=== PATIENT | male | born 1945 | race African-American/Black ===

== ENCOUNTER 2018-04-02 09:52 | Emergency (ER) | payer OTHER ==
--- OUTSIDE RECORDS SUMMARY | 2018-04-02 09:53 | XMS REPORT ---
:1945 Author Organization eClinicalWorks Care Team Providers Name Role Phone Hamilton, Na Provider Role Unavailable Allergies, Adverse Reactions, Alerts Substance Reaction Event Type penicillin Info Not Available Drug Allergy Nathan Inhibitor anaphylaxis Drug Allergy Sulfa Info Not Available Drug Allergy Problems Problem Type Condition Code Onset Dates Condition Status Problem Osteoarthritis M19.90 Active Problem Alcohol abuse F10.10 Active Problem Screening for prostate cancer Z12.5 Active Problem Elevated blood pressure reading in I10 Active office with diagnosis of hypertension Assessment Elevated serum globulin level R77.1 Active Problem Persistent lymphocytosis D72.820 Active Assessment Renal insufficiency N28.9 Active Assessment Screening for malignant neoplasm of Z12.11 Active colon Problem Screening for malignant neoplasm of Z12.11 Active colon Problem Renal insufficiency N28.9 Active Problem Bradycardia R00.1 Active Problem Anemia D64.9 Active Problem Sexual dysfunction R37 Active Assessment Mixed hyperlipidemia E78.2 Active Assessment Elevated blood pressure reading in I10 Active office with diagnosis of hypertension Assessment Persistent lymphocytosis D72.820 Active Assessment Microcytic anemia D50.9 Active Problem Mixed hyperlipidemia E78.2 Active Problem Neutropenia, unspecified D70.9 Active Problem Microcytic anemia D50.9 Active Problem Idiopathic peripheral neuropathy G60.9 Active Problem Chronic back pain M54.9 Active Medications Medication Code Code Instructions Start End Status Dosage System Date Date Viagra [facility] 04384373419 100 MG Orally Active 1 tablet Once a day as needed Aspir-81 [facility] 71388929693 81 MG Orally Active 1 tablet Once a day Cozaar [facility] 57772069616 50 MG Inactive TAKE 1 TABLET EVERY DAY Lisinopril ND 59773644436 10 MG Orally Inactive 1 tablet Once a day Nasacort [facility] 18395007482 55 MCG/ACT Active 1 puff in Allergy 24HR Nasally Once a each day nostril Ferrous Sulfate [facility] 78841282739 325 (65 Fe) MG Active 1 tablet Orally Once a day Cialis [facility] 58478415157 20 MG Orally Inactive 1 tablet Lipitor [facility] 08377673753 10 MG Orally Active 1 tablet Once a day HydrALAZINE HCl [facility] 78757227010 25 MG Orally Active 1 tablet two times a day with food Norvasc [facility] 27598329693 10 MG Orally Active 1 tablet Once a day Results No Known Results Summary Purpose eClinicalWorks Submission
--- OUTSIDE RECORDS SUMMARY | 2018-04-02 09:53 | XMS REPORT ---
:1945 Author Organization eClinicalWorks Care Team Providers Name Role Phone Hamilton, Na Provider Role Unavailable Allergies, Adverse Reactions, Alerts Substance Reaction Event Type penicillin Info Not Available Drug Allergy Nathan Inhibitor anaphylaxis Drug Allergy Sulfa Info Not Available Drug Allergy Problems Problem Type Condition Code Onset Dates Condition Status Problem Chronic back pain M54.9 Active Problem Screening for prostate cancer Z12.5 Active Problem Osteoarthritis M19.90 Active Problem Anemia D64.9 Active Problem Sexual dysfunction R37 Active Problem Hypertension I10 Active Problem Bradycardia R00.1 Active Problem Alcohol abuse F10.10 Active Problem Lymphocytosis D72.820 Active Problem Renal insufficiency N28.9 Active Assessment Screening for malignant neoplasm of Z12.11 Active colon Assessment Microcytic anemia D50.9 Active Problem Idiopathic peripheral neuropathy G60.9 Active Problem Mixed hyperlipidemia E78.2 Active Assessment Mixed hyperlipidemia E78.2 Active Problem Neutropenia, unspecified D70.9 Active Assessment Hypertension I10 Active Problem Microcytic anemia D50.9 Active Medications Medication Code Code Instructions Start End Status Dosage System Date Date [facility] 88656041925 81 MG Orally Active 1 tablet Once a day Nasacort [facility] 61870064737 55 MCG/ACT Active 1 puff in Allergy 24HR Nasally Once a each day nostril Viagra [facility] 89253353183 100 MG Orally Active 1 tablet Once a day as needed Lisinopril [facility] 37947515140 10 MG Orally Active 1 tablet Once a day HydrALAZINE HCl [facility] 93080750635 25 MG Orally two September Active 1 tablet times a day 2017 with food Ferrous Sulfate [facility] 56337384106 325 (65 Fe) MG September Active 1 tablet Orally Once a 2017 day Cialis [facility] 63910283622 20 MG Orally Active 1 tablet Norvasc [facility] 57959240329 10 MG Orally Active 1 tablet Once a day Cozaar [facility] 52628125814 50 MG Orally Active 1 tablet Once a day Lipitor [facility] 82836656415 10 MG Orally Active 1 tablet Once a day Results No Known Results Summary Purpose eClinicalWorks Submission
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
--- NOTE | 2018-04-02 10:56 | ER ---
Nurse's Notes [facility] Name: Holger Herrera Jr Age: 72 yrs Sex: Male : 1945 Arrival Date: 04/02/2018 Time: 09:54 Bed 20 Private MD: Diagnosis: Sprain of ligaments of lumbar spine Presentation: 04/02 09:57 Presenting complaint: Patient states: low back pain x 2 days, s/p fall 2 days ago. sv Denies urinary symptoms. Transition of care: patient was not received from another setting of care. Onset of symptoms was March 31, 2018. Risk Assessment: Do you want to hurt yourself or someone else? Patient reports no desire to harm self or others. Initial Sepsis Screen: Does the patient meet any 2 criteria? No. Patient's initial sepsis screen is negative. Does the patient have a suspected source of infection? No. Patient's initial sepsis screen is negative. Care prior to arrival: None. 09:57 Method Of Arrival: Ambulatory sv 09:57 Acuity: TIMOTHY 4 sv Triage Assessment: 09:57 General: Appears in no apparent distress. uncomfortable, Behavior is calm, cooperative. sv Pain: Complains of pain in low back area Pain currently is 10 out of 10 on a pain scale. Pain began 2-3 days ago. Is continuous, Aggravated by increased activity. Neuro: Level of Consciousness is awake, alert, obeys commands, Oriented to person, place, time, situation, Moves all extremities. Full function Gait is steady, with his cane. Respiratory: Respiratory effort is even, unlabored, Respiratory pattern is regular, symmetrical. : Denies burning with urination, urinary frequency, urgency. Musculoskeletal: Circulation, motion, and sensation intact. Range of motion: intact in all extremities. Historical: - Allergies: 09:58 PENICILLINS; sv - PMHx: 09:58 High Cholesterol; Hypertension; sv - PSHx: 09:58 None; sv - Immunization history:: Flu vaccine is not up to date. - Social history:: Smoking status: Patient/guardian denies using tobacco. - Ebola Screening: : No symptoms or risks identified at this time. Screenin:10 Abuse screen: Denies threats or abuse. Denies injuries from another. Nutritional aj screening: No deficits noted. Tuberculosis screening: No symptoms or risk factors identified. Fall Risk Fall in past 12 months (25 points). No secondary diagnosis (0 pts). No IV (0 pts). Ambulatory Aid- Crutches/Cane/Walker (15 pts). Gait- Normal/Bed Rest/Wheelchair (0 pts) Mental Status- Oriented to own ability (0 pts). Assessment: 10:10 General: Appears in no apparent distress. comfortable, Behavior is calm, cooperative, aj appropriate for age. Pain: Complains of pain in low back area. Neuro: Level of Consciousness is awake, alert, obeys commands, Oriented to person, place, time, situation, Appropriate for age. Respiratory: Airway is patent Respiratory effort is even, unlabored, Respiratory pattern is regular, symmetrical. Derm: Skin is intact, is healthy with good turgor, Skin is pink, warm \T\ dry. normal. Musculoskeletal: Reports pain in low back area. 11:40 Neuro: Level of Consciousness is awake, alert, obeys commands, Oriented to person, aa5 place, time, situation. Respiratory: Airway is patent Respiratory effort is even, unlabored, Respiratory pattern is regular, symmetrical. Derm: Skin is dry, Skin is normal, Skin temperature is warm. Vital Signs: 09:59 BP 189 / 90; Pulse 58; Resp 16; Temp 97.3; Pulse Ox 97% ; Weight 95.25 kg; Height 6 ft. sv 0 in. (182.88 cm); Pain 10/10; 09:59 Body Mass Index 28.48 (95.25 kg, 182.88 cm) sv ED Course: 09:54 Patient arrived in ED. mr 09:58 Triage completed. sv 09:59 Arm band placed on. sv 10:01 Junior Persaud PA is PHCP. jm 10:01 Darrel Melvin MD is Attending Physician. jmm 10:10 Dipti Sadler, RN is Primary Nurse. aj 10:10 Patient has correct armband on for positive identification. aj 10:38 Lumbar Spine (3 Views) XRAY In Process Unspecified. EDMS 11:40 No provider procedures requiring assistance completed. aa5 11:40 Patient did not have IV access during this emergency room visit. aa5 Administered Medications: 11:20 Drug: Motrin 600 mg Route: PO; aa5 Outcome: 10:55 Discharge ordered by . jmm 11:40 Discharged to home ambulatory. aa5 11:40 Condition: stable 11:40 Discharge instructions given to patient, Instructed on discharge instructions, follow up and referral plans. medication usage, Demonstrated understanding of instructions, follow-up care, medications, Prescriptions given X 1. 11:42 Patient left the ED. aa5 Signatures: Dispatcher [employer] EDCarmen Espinoza RN RN sv Myers, Amanda, RN RN aj Mickail, Joel, PA PA jmm Rivera, Mary mr Calderon, Audri RN RN aa5 Corrections: (The following items were deleted from the chart) 10:48 09:57 Presenting complaint: Patient states: low back pain x 2 days. Denies urinary sv symptoms. sv
--- NOTE | 2018-04-02 10:56 | EDPHYS ---
Physician Documentation [facility] Name: Holger Herrera Jr Age: 72 yrs Sex: Male : 1945 Arrival Date: 04/02/2018 Time: 09:54 Bed 20 Private MD: ED Physician Darrel Melvin HPI: 04/02 10:16 This 72 yrs old Black Male presents to ER via Ambulatory with complaints of Back Pain. jmm 10:16 The patient presents with pain that is acute. The symptoms are located in the low back. jmm Onset: The symptoms/episode began/occurred acutely, 2 day(s) ago. The pain does not radiate. Associated signs and symptoms: Pertinent negatives: dysuria, fever, incontinence, numbness, tingling, urinary retention. This is a 72 year old male with a history of HLP, HTN that presents to the ED with lower back pain which developed after falling from a standing position and landing on his buttocks. Patient complains of pain mainly to the right side of the back. Denies radiation, urinary retention, denies fecal incontinence. . Historical: - Allergies: 09:58 PENICILLINS; sv - PMHx: 09:58 High Cholesterol; Hypertension; sv - PSHx: 09:58 None; sv - Immunization history:: Flu vaccine is not up to date. - Social history:: Smoking status: Patient/guardian denies using tobacco. - Ebola Screening: : No symptoms or risks identified at this time. ROS: 10:16 Constitutional: Negative for fever, chills, and weight loss, Cardiovascular: Negative jmm for chest pain, palpitations, and edema, Respiratory: Negative for shortness of breath, cough, wheezing, and pleuritic chest pain, Abdomen/GI: Negative for abdominal pain, nausea, vomiting, diarrhea, and constipation. 10:16 MS/Extremity: Negative for injury and deformity, Neuro: Negative for headache, weakness, numbness, tingling, and seizure. 10:16 Back: Positive for pain at rest. 10:16 All other systems are negative. Exam: 10:16 Head/Face: atraumatic. Eyes: EOMI, no conjunctival erythema appreciated ENT: Moist jmm Mucus Membranes Neck: Trachea midline, Supple Chest/axilla: Normal chest wall appearance and motion. Cardiovascular: Regular rate and rhythm. No edema appreciated Respiratory: Normal respirations, no respiratory distress appreciated Abdomen/GI: Non distended, soft 10:16 Constitutional: The patient appears in no acute distress, alert, awake. 10:16 Back: vertebral tenderness, is not appreciated, right lumbar paraspinal tenderness. 10:16 Neuro: Orientation: is normal, Mentation: is normal, Memory: is normal, Gait: is steady. 10:16 Psych: Behavior/mood is pleasant, cooperative. Vital Signs: 09:59 BP 189 / 90; Pulse 58; Resp 16; Temp 97.3; Pulse Ox 97% ; Weight 95.25 kg; Height 6 ft. sv 0 in. (182.88 cm); Pain 10; 09:59 Body Mass Index 28.48 (95.25 kg, 182.88 cm) sv MDM: 10:06 Patient medically screened. [facility] 10:55 Data reviewed: vital signs, nurses notes. Counseling: I had a detailed discussion with rosie the patient and/or guardian regarding: the historical points, exam findings, and any diagnostic results supporting the discharge/admit diagnosis, radiology results, the need for outpatient follow up, to return to the emergency department if symptoms worsen or persist or if there are any questions or concerns that arise at home. 11:29 ED course: Lumbar xray showed no acute findings. Patient is able to ambulate. I do not [facility] currently suspect cord compression. . 04/02 10:08 Order name: Lumbar Spine (3 Views) XRAY; Complete Time: 10:52 [facility] Administered Medications: 11:20 Drug: Motrin 600 mg Route: PO; aa5 Disposition: 10:55 Chart complete. Chart complete. [facility] Disposition: 04/02/18 10:55 Discharged to Home. Impression: Sprain of ligaments of lumbar spine. - Condition is Stable. - Discharge Instructions: Back Pain, Adult. - Prescriptions for orphenadrine citrate 100 mg Oral Tablet Sustained Release - take 1 tablet by ORAL route 2 times per day As needed; 20 tablet. - Medication Reconciliation Form, Thank You Letter, Antibiotic Education, Prescription Opioid Use form. - Follow up: Private Physician; When: 2 - 3 days; Reason: Recheck today's complaints, Continuance of care, Re-evaluation by your physician. Addendum: 04/10/2018 11:31 Co-signature as Attending Physician, Darrel Melvin MD. g s Signatures: Dispatcher [employer] Carmen Cristina RN RN Junior Persaud PA PA jmm Calderon, Audri RN RN aa5 Darrel Melvin MD MD gs Corrections: (The following items were deleted from the chart) 04/02 11:42 10:55 04/02/2018 10:55 Discharged to Home. Impression: Sprain of ligaments of lumbar aa5 spine. Condition is Stable. Forms are Medication Reconciliation Form, Thank You Letter, Antibiotic Education, Prescription Opioid Use. Follow up: Private Physician; When: 2 - 3 days; Reason: Recheck today's complaints, Continuance of care, Re-evaluation by your physician. rosie
[2018-04-02] MEDS ORDERED: IBUPROFEN 400 MG TAB ONE (11:18)
[2018-04-02] MEDS ORDERED: IBUPROFEN 200 MG TAB PO ONE (11:18)
[2018-04-02 11:45] VITALS: BP 189/90; TEMP 97.3; O2SAT 97
== END 2018-04-02 11:42 | disposition home or self-care (01) ==
LOC: ER 09:52
DX: S33.5XXA Sprain of ligaments of lumbar spine, initial encounter (principal); W19.XXXA Unspecified fall, initial encounter; Y93.9 Activity, unspecified; Y92.9 Unspecified place or not applicable; Z88.0 Allergy status to penicillin
CPT/HCPCS: 72100; 99283

== ENCOUNTER 2019-05-31 09:17 | Emergency (ER) | payer OTHER ==
--- OUTSIDE RECORDS SUMMARY | 2019-05-31 09:20 | XMS REPORT ---
:1945 Author Organization eClinicalWorks Care Team Providers Name Role Phone Hamilton, Sophia Provider Role Unavailable Allergies No Known Allergies Problems Problem Type Condition Code Onset Dates Condition Status Assessment Influenza vaccination declined Z28.21 Active Assessment Eczema, unspecified type L30.9 Active Assessment Renal insufficiency N28.9 Active Problem Renal insufficiency N28.9 Active Assessment Elevated serum globulin level R77.1 Active Problem Sexual dysfunction R37 Active Assessment Persistent lymphocytosis D72.820 Active Problem Anemia D64.9 Active Problem Mixed hyperlipidemia E78.2 Active Problem Idiopathic peripheral neuropathy G60.9 Active Problem Eczema, unspecified type L30.9 Active Problem Age-related cataract of both eyes, H25.9 Active unspecified age-related cataract type Assessment Elevated blood pressure reading in I10 Active office with diagnosis of hypertension Assessment Mixed hyperlipidemia E78.2 Active Problem Encounter for general adult medical Z00.01 Active examination with abnormal findings Assessment Microcytic anemia D50.9 Active Problem Screening for malignant neoplasm of Z12.11 Active colon Problem Elevated blood pressure reading in I10 Active office with diagnosis of hypertension Problem Elevated serum globulin level R77.1 Active Problem Persistent lymphocytosis D72.820 Active Problem Microcytic anemia D50.9 Active Problem Chronic back pain M54.9 Active Problem Neutropenia, unspecified D70.9 Active Problem Alcohol abuse F10.10 Active Problem Bradycardia R00.1 Active Problem Osteoarthritis M19.90 Active Problem Screening for prostate cancer Z12.5 Active Medications Medication Code Code Instructions Start End Status Dosage System Date Date Viagra [facility] 42186285008 100 MG Orally Active 1 tablet as Once a day needed Metoprolol Succinate [facility] 43967230852 25 MG Orally Sept Active 1 tablet ER Once a day [facility] 84[facility] 10 MG Orally Active 1 tablet Once a day Tizanidine HCl [facility] 71844118415 2 MG Active 1 TAB EVERY 12 HOURS PRN PAIN MUSCLE SPASM HydrALAZINE HCl [facility] 63640917887 25 MG Orally Active 1 tablet Three times a with food day Hydrochlorothiazide [facility] 53404138639 25 MG Orally Sept Active 1 tablet in Once a day , the morning 2018 Triamcinolone [facility] 51250010566 0.1 % Active 1 Acetonide Externally application Twice a day to affected area Ferrous Sulfate [facility] 37987723861 325 (65 Fe) Active 1 tablet MG Orally Once a day Ferrous Sulfate [facility] 89205771657 325 (65 Fe) Inactive 1 tablet MG Orally Once a day Aspir-81 [facility] 88559173306 81 MG Orally Active 1 tablet Once a day Nasacort Allergy 24HR [facility] 82168476728 55 MCG/ACT Active 1 puff in Nasally Once each nostril a day Norvasc [facility] 00537895893 10 MG Orally Active 1 tablet Once a day Lipitor [facility] 29846382402 10 MG Orally Active 1 tablet Once a day Results No Known Results Summary Purpose eClinicalWorks Submission
[2019-05-31 09:59] LABS: Absolute Lymphocytes (CBC) 2.5 K/uL (0.7-4.9); Basophils % 0.2 % (0-1.3); Hematocrit 39.8 % (39.6-49.0); Lymphocytes % 45.3 % (15.3-44.8); MPV 8.9 fL (7.6-11.3); RBC Red Blood Cell Count 5.56 M/uL (4.33-5.43)
[2019-05-31 10:19] LABS: BUN Blood Urea Nitrogen 13 mg/dL (7-18); Bicarbonate 29 mmol/L (21-32); Glucose Level 93 mg/dL (74-106); Sodium Level 146 mmol/L (136-145); Troponin (Emerg Dept Use Only) < 0.02 ng/mL (0.0-0.045)
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
--- NOTE | 2019-05-31 10:44 | RAD REPORT ---
EXAM DESCRIPTION: RAD - Lumbar Spine 3 Views - 05/31/2019 10:25 am CLINICAL HISTORY: PAIN Radiculopathy COMPARISON: Lumbar Spine 3 Views dated 04/02/2018 FINDINGS: Vertebral body heights appear maintained. No compression fracture noted. Multilevel disc t hinning is present throughout the lumbar spine with small posterior osteophytes, most severe at L5-S1 . No spondylolysis or spondylolisthesis. Aortic atherosclerosis. IMPRESSION: Lumbar degenerative changes are present, greatest at L5-S1. No acute finding demonstrated.
--- NOTE | 2019-05-31 10:50 | RAD REPORT ---
EXAM DESCRIPTION: RAD - Sacrum And Coccyx - 05/31/2019 10:24 am CLINICAL HISTORY: PAIN Trauma, pain COMPARISON: Lumbar Spine 3 Views dated 05/31/2019; Lumbar Spine 3 Views dated 04/02/2018 FINDINGS: No acute fracture seen. Moderate lower lumbar degenerative changes.
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
--- NOTE | 2019-05-31 11:48 | ER ---
Nurse's Notes [facility] Name: Holger Herrera Jr Age: 73 yrs Sex: Male : 1945 Arrival Date: 05/31/2019 Time: 09:19 Bed 4 Private MD: Diagnosis: Radiculopathy, lumbosacral region;Chest pain, unspecified Presentation: 05/31 09:22 Presenting complaint: Patient states: fell onto his butt on and since then iw he's had pain to left low back radiating to left leg and also has been having chest pain since then, pain occurs mostly at night. Transition of care: patient was not received from another setting of care. Onset of symptoms was May 03, 2019. Risk Assessment: Do you want to hurt yourself or someone else? Patient reports no desire to harm self or others. Initial Sepsis Screen: Does the patient meet any 2 criteria? No. Patient's initial sepsis screen is negative. Does the patient have a suspected source of infection? No. Patient's initial sepsis screen is negative. Care prior to arrival: None. 09:22 Method Of Arrival: Ambulatory iw 09:22 Acuity: TIMOTHY 3 iw Historical: - Allergies: 09:24 PENICILLINS; iw - Home Meds: 09:24 Norvasc Oral [Active]; atorvastatin oral oral [Active]; Hydralazine Oral [Active]; iw - PMHx: 09:24 High Cholesterol; Hypertension; iw - PSHx: 09:24 None; iw - Immunization history:: Adult Immunizations not up to date. - Social history:: Smoking status: Patient/guardian denies using tobacco. - Ebola Screening: : Patient negative for fever greater than or equal to 101.5 degrees Fahrenheit, and additional compatible Ebola Virus Disease symptoms Patient denies exposure to infectious person Patient denies travel to an Ebola-affected area in the 21 days before illness onset No symptoms or risks identified at this time. - Family history:: not pertinent. - Hospitalizations: : No recent hospitalization is reported. Screenin:03 Abuse screen: Denies threats or abuse. Denies injuries from another. Nutritional jl7 screening: No deficits noted. Tuberculosis screening: No symptoms or risk factors identified. Fall Risk IV access (20 points). Total Carmona Fall Scale indicates No Risk (0-24 pts). Assessment: 09:45 General: Appears in no apparent distress. uncomfortable, Behavior is calm, cooperative, jl7 appropriate for age. Pain: Complains of pain in left hip Pain radiates to left leg Pain currently is 5 out of 10 on a pain scale. Quality of pain is described as aching, Pain began x 1 month Is continuous. Pain: Complains of pain in anterior aspect of left upper chest Pain does not radiate. Pain currently is 2 out of 10 on a pain scale. Quality of pain is described as aching, Pain began x 1month Is intermittent. Neuro: Level of Consciousness is awake, alert, obeys commands, Oriented to person, place, time, situation. Cardiovascular: Heart tones present Patient's skin is warm and dry. Rhythm is regular. Respiratory: Airway is patent Respiratory effort is even, unlabored, Respiratory pattern is regular, symmetrical, Breath sounds are clear bilaterally. GI: No signs and/or symptoms were reported involving the gastrointestinal system. : No signs and/or symptoms were reported regarding the genitourinary system. Derm: Skin is pink, warm \T\ dry. 11:00 Reassessment: Patient appears in no apparent distress at this time. No changes from jl7 previously documented assessment. Patient and/or family updated on plan of care and expected duration. Pain level reassessed. Patient is alert, oriented x 3, equal unlabored respirations, skin warm/dry/pink. Vital Signs: 09:24 BP 162 / 76; Pulse 55; Resp 16; Temp 98.4; Pulse Ox 100% on R/A; Weight 92.99 kg; iw Height 6 ft. 0 in. (182.88 cm); Pain 6/10; 10:03 BP 175 / 80; Pulse 50; Resp 16 S; Pulse Ox 100% on R/A; Pain 5/10; jl7 11:00 BP 185 / 80; Pulse 52; Resp 16 S; Pulse Ox 100% on R/A; jl7 11:55 BP 173 / 86; Pulse 51; Resp 16 S; Pulse Ox 100% on R/A; jl7 09:24 Body Mass Index 27.80 (92.99 kg, 182.88 cm) iw ED Course: 09:19 Patient arrived in ED. rg4 09:23 Triage completed. iw 09:24 Arm band placed on. iw 09:29 Kendall Painter MD is Attending Physician. rn 09:39 Heber Suárez, NOLBERTO is Primary Nurse. jl7 09:56 EKG done, by optical lab technician. reviewed by Kendall Painter MD. at1 10:03 Patient has correct armband on for positive identification. Placed in gown. Bed in low jl7 position. Call light in reach. Side rails up X 1. hall monitor on. Pulse ox on. NIBP on. 10:03 Initial lab(s) drawn, by me, sent to lab. Inserted saline lock: 20 gauge in left jl7 forearm, using aseptic technique. Blood collected. Patient maintains SpO2 saturation greater than 95% on room air. 10:22 XRAY Chest (1 view) In Process Unspecified. EDMS 10:22 Lumbar Spine (3 Views) XRAY In Process Unspecified. EDMS 10:22 XRAY Sacrum And Coccyx In Process Unspecified. EDMS 10:22 XRAY Pelvis In Process Unspecified. EDMS 11:56 No provider procedures requiring assistance completed. IV discontinued, intact, jl7 bleeding controlled, No redness/swelling at site. Pressure dressing applied. Administered Medications: No medications were administered Outcome: 11:47 Discharge ordered by . rn 11:56 Discharged to home ambulatory, with family. jl7 11:56 Condition: stable 11:56 Discharge instructions given to patient, family, Instructed on discharge instructions, follow up and referral plans. medication usage, Demonstrated understanding of instructions, follow-up care, medications, Prescriptions given X 2. 11:56 Patient left the ED. jl7 Signatures: Dispatcher [employer] EDMS Jonna Barron, NOLBERTO ARVIZU Kendall Painter MD MD rn Gonzales, Amanda, sharepoint engineer EKG Tat1 Justina Scruggs rg4 Heber Suárez, NOLBERTO RN jl7 Corrections: (The following items were deleted from the chart) 10:02 08:45 General: Appears in no apparent distress. uncomfortable, Behavior is calm, jl7 cooperative, appropriate for age, jl7 10:02 08:45 Pain: Complains of pain in anterior aspect of left upper chest Pain does not jl7 radiate. Pain currently is 2 out of 10 on a pain scale. Quality of pain is described as aching, Pain began x 1month Is intermittent, jl7 10:02 08:45 Pain: Complains of pain in left hip Pain radiates to left leg Pain currently is 5 jl7 out of 10 on a pain scale. Quality of pain is described as aching, Pain began x 1 month Is continuous, jl7 08:45 Neuro: Level of Consciousness is awake, alert, obeys commands, Oriented to jl7 person, place, time, situation, 7 : 08:45 Cardiovascular: Heart tones present Patient's skin is warm and dry. Rhythm is jl7 regular jl7 :45 Respiratory: Airway is patent Respiratory effort is even, unlabored, Respiratory jl7 pattern is regular, symmetrical, Breath sounds are clear bilaterally. jl7 :45 GI: No signs and/or symptoms were reported involving the gastrointestinal system. jl7 jl7 :45 : No signs and/or symptoms were reported regarding the genitourinary system. [id number] :07 14:45 Derm: Skin is pink, warm \T\ dry. jl7 jl7
--- NOTE | 2019-05-31 11:48 | EDPHYS ---
Physician Documentation [facility] Name: Holger Herrera Jr Age: 73 yrs Sex: Male : 1945 Arrival Date: 05/31/2019 Time: 09:19 Bed 4 Private MD: ED Physician Kendall Painter HPI: 05/31 09:39 This 73 yrs old Black Male presents to ER via Ambulatory with complaints of Chest Pain, rn Leg Pain. 09:39 The patient or guardian reports chest pain that is located primarily in the anterior rn chest wall. Onset: 1 month(s) ago. The pain does not radiate. Associated signs and symptoms: Pertinent negatives: abdominal pain, cough, diaphoresis, headache, lightheadedness, nausea, near syncope, palpitations, recent travel, shortness of breath, syncope, vomiting. The chest pain is described as dull. Duration: The patient or guardian reports multiple episodes, that are intermittent. Modifying factors: The symptoms are alleviated by nothing. the symptoms are aggravated by nothing. Severity of pain: At its worst the pain was mild in the emergency department the pain has improved. The patient has experienced similar episodes in the past. Reports fell around [facility], has been having 2 problems since then, one being left sided chest pain, intermittent, worse at night, no cough/sob/diaphoresis. Also having left leg pain, states fell directly onto seat, reports electric pain that shoots down left leg, but does not feel like broke leg or hip. . Historical: - Allergies: 09:24 PENICILLINS; iw - Home Meds: 09:24 Norvasc Oral [Active]; atorvastatin oral oral [Active]; Hydralazine Oral [Active]; iw - PMHx: 09:24 High Cholesterol; Hypertension; iw - PSHx: 09:24 None; iw - Immunization history:: Adult Immunizations not up to date. - Social history:: Smoking status: Patient/guardian denies using tobacco. - Ebola Screening: : Patient negative for fever greater than or equal to 101.5 degrees Fahrenheit, and additional compatible Ebola Virus Disease symptoms Patient denies exposure to infectious person Patient denies travel to an Ebola-affected area in the 21 days before illness onset No symptoms or risks identified at this time. - Family history:: not pertinent. - Hospitalizations: : No recent hospitalization is reported. ROS: 09:39 Constitutional: Negative for fever, chills, and weight loss, Eyes: Negative for injury, rn pain, redness, and discharge, Cardiovascular: Negative for palpitations, and edema, Respiratory: Negative for shortness of breath, cough, wheezing Abdomen/GI: Negative for abdominal pain, nausea, vomiting, diarrhea, and constipation, MS/Extremity: Negative for injury and deformity, Skin: Negative for injury, rash, and discoloration, Neuro: Negative for headache, weakness, and seizure. Exam: 09:38 ECG was reviewed by the Attending Physician. rn 09:39 Constitutional: This is a well developed, well nourished patient who is awake, alert, rn and in no acute distress. Ambulatory to room without difficulty. Head/Face: Normocephalic, atraumatic. Neck: Trachea midline, no thyromegaly or masses palpated, and no cervical lymphadenopathy. Supple, full range of motion without nuchal rigidity, or vertebral point tenderness. No Meningismus. Cardiovascular: Regular rhythm, regular rate. No pulse deficits. Respiratory: Lungs have equal breath sounds bilaterally, clear to auscultation, No increased work of breathing, no retractions or nasal flaring. Abdomen/GI: soft, non-tender MS/ Extremity: Pulses equal, no cyanosis. Neurovascular intact. Full, normal range of motion. Equal circumference. Neuro: Awake and alert, GCS 15, oriented to person, place, time, and situation. Cranial nerves II-XII grossly intact. Motor strength 5/5 in all extremities. Sensory grossly intact. Cerebellar exam normal. Normal gait. Vital Signs: 09:24 BP 162 / 76; Pulse 55; Resp 16; Temp 98.4; Pulse Ox 100% on R/A; Weight 92.99 kg; iw Height 6 ft. 0 in. (182.88 cm); Pain 6/10; 10:03 BP 175 / 80; Pulse 50; Resp 16 S; Pulse Ox 100% on R/A; Pain 5/10; jl7 11:00 BP 185 / 80; Pulse 52; Resp 16 S; Pulse Ox 100% on R/A; jl7 11:55 BP 173 / 86; Pulse 51; Resp 16 S; Pulse Ox 100% on R/A; jl7 09:24 Body Mass Index 27.80 (92.99 kg, 182.88 cm) iw MDM: 09:29 Patient medically screened. rn 11:44 Differential diagnosis: anxiety, coronary artery disease chest wall pain, rn costochondritis, esophagitis, gastritis, gastroesophageal reflux disease (GERD), pericarditis, pleurisy, stable angina, back injury, radiculopathy, MSk pain. Data reviewed: vital signs, nurses notes, lab test result(s), EKG, radiologic studies, plain films, and as a result, I will discharge patient. Counseling: I had a detailed discussion with the patient and/or guardian regarding: the historical points, exam findings, and any diagnostic results supporting the discharge/admit diagnosis, lab results, radiology results, the need for outpatient follow up, to return to the emergency department if symptoms worsen or persist or if there are any questions or concerns that arise at home. Special discussion: Based on the patient's history, exam, and Dx evaluation, there is no indication for emergent intervention or inpatient Tx. It is understood by the patient/guardian that if the Sx's persist or worsen they need to return immediately for re-evaluation. I discussed with the patient/guardian in detail that at this point there is no indication for admission to the hospital. It is understood, however, that if the symptoms persist or worsen the patient needs to return immediately for re-evaluation. Based on the history and exam findings, there is no indication for further emergent testing or inpatient evaluation. I discussed with the patient/guardian the need to see the radar engineer for further evaluation of the symptoms. ED course: Pt without acute findings, neg trop, neg xrays for fracture. Chest pain and back pain following fall, leg likely radiculopathy, recommend cardiology f/u for chest pain as he feels in from fall, but could be coincidental. . 05/31 09:36 Order name: Basic Metabolic Panel; Complete Time: 10:47 rn 05/31 09:36 Order name: CBC with Diff; Complete Time: 10:17 rn 05/31 09:36 Order name: Troponin (emerg Dept Use Only); Complete Time: 10:47 rn 05/31 09:36 Order name: XRAY Chest (1 view); Complete Time: 11:15 rn 05/31 09:36 Order name: Lumbar Spine (3 Views) XRAY; Complete Time: 11:15 rn 05/31 09:36 Order name: XRAY Sacrum And Coccyx; Complete Time: 11:15 rn 05/31 09:36 Order name: EKG; Complete Time: 09:37 rn 05/31 09:36 Order name: Cardiac monitoring; Complete Time: 09:59 rn 05/31 09:36 Order name: EKG - Nurse/Tech; Complete Time: 09:59 rn 05/31 09:36 Order name: IV Saline Lock; Complete Time: 09:59 rn 05/31 09:36 Order name: Labs collected and sent; Complete Time: 09:59 rn 05/31 09:36 Order name: O2 Per Protocol; Complete Time: 09:59 rn 05/31 09:36 Order name: O2 Sat Monitoring; Complete Time: :59 rn 05/31 09:36 Order name: XRAY Pelvis; Complete Time: 10:47 rn EC:38 Rate is 51 beats/min. Rhythm is regular. QRS Media is Normal. [place] interval is prolonged rn at 238 msec. QRS interval is normal. QT interval is normal. No Q waves. T waves are Inverted in leads II, III, aVF, V5, V6. No ST changes noted. Clinical impression: NSR w/ Non-specific ST/T Changes. Interpreted by me. Reviewed by me. Administered Medications: No medications were administered Disposition: 05/31/19 11:47 Discharged to Home. Impression: Radiculopathy, lumbosacral region, Chest pain, unspecified. - Condition is Stable. - Discharge Instructions: Nonspecific Chest Pain, Lumbosacral Radiculopathy, Pain Without a Known Cause. - Prescriptions for Medrol (Paul) 4 mg Oral Tablets, Dose Pack - take 1 tablet by ORAL route as directed - follow package instructions; 1 packet. Cyclobenzaprine 5 mg Oral Tablet - take 1 tablet by ORAL route 3 times per day As needed; 15 tablet. - Medication Reconciliation Form, Thank You Letter, Antibiotic Education, Prescription Opioid Use form. - Follow up: Private Physician; When: As needed; Reason: Recheck today's complaints, Re-evaluation by your physician. - Problem is an ongoing problem. - Symptoms have improved. Signatures: Dispatcher [employer] EDJonna Pack, Kendall Guillen RN, MD MD rn Leal, Jahala, RN RN jl7 Corrections: (The following items were deleted from the chart) 11:56 11:47 05/31/2019 11:47 Discharged to Home. Impression: Radiculopathy, lumbosacral jl7 region; Chest pain, unspecified. Condition is Stable. Forms are Medication Reconciliation Form, Thank You Letter, Antibiotic Education, Prescription Opioid Use. Follow up: Private Physician; When: As needed; Reason: Recheck today's complaints, Re-evaluation by your physician. Problem is an ongoing problem. Symptoms have improved. rn
--- NOTE | 2019-05-31 11:57 | EKG ---
Test Date: 2019-05-31 Test Time: 09:36:16 Retail Warehouse Associate: ANGELO MEASUREMENT RESULTS: Intervals: Rate: 51 NC: 238 QRSD: 86 QT: 418 QTc: 385 [place]: P: 71 NC: 238 QRS: 54 T: -65 INTERPRETIVE STATEMENTS: Sinus bradycardia with 1st degree AV block T wave abnormality, consider inferolateral ischemia Abnormal ECG Compared to ECG 10/24/2015 09:32:51 No significant changes Electronically Signed On 05-31-19 11:56:48 HAND PASTER by Edgar Dash
[2019-05-31 12:05] VITALS: TEMP 98.4; O2SAT 100
[2019-05-31 12:10] VITALS: BP 173/86
== END 2019-05-31 11:56 | disposition home or self-care (01) ==
LOC: ER 09:17
DX: M54.17 Radiculopathy, lumbosacral region (principal); I10 Essential (primary) hypertension; E78.00 Pure hypercholesterolemia, unspecified; Z88.0 Allergy status to penicillin
CPT/HCPCS: 36415; 71045; 72100; 72170; 72220; 80048; 84484; 85025; 93005; 99285

== ENCOUNTER 2021-02-28 08:27 | Emergency (ER) | payer OTHER ==
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
[2021-02-28 09:26] VITALS: TEMP 97.7; O2SAT 100
[2021-02-28 09:28] VITALS: BP 170/79
[2021-02-28] MEDS ORDERED: DIPHENHYDRAMINE 25 MG TAB/CAP ONE (09:35)
== END 2021-02-28 09:20 | disposition home or self-care (01) ==
LOC: ER 08:27
DX: R21 Rash and other nonspecific skin eruption (principal); Z88.0 Allergy status to penicillin; Z88.6 Allergy status to analgesic agent
CPT/HCPCS: 99283

== ENCOUNTER 2022-08-14 14:28 | Emergency (ER) | payer OTHER ==
--- OUTSIDE RECORDS SUMMARY | 2022-08-14 15:01 | XMS REPORT | Continuity of Care Document ---
:[address] [facility] t Address [address] [facility] [address] [place] [address] Care Team Providers Name Role Phone Sindy Thornton Attending Clinician Unavailable Sophia Hamilton Attending Clinician Unavailable Payers Payer Name Policy Type Policy Number Effective Date Expiration Date S sanya [facility] 53 [id number] [facility] - [facility] ([facility] [place] [place]) [facility] Problems Condition Condition Condition Status Onset Resolution Last Treating Co mments Source Name Details Category Date Date Treatment Clinician Date [id number] Controlled Problem Com mon type 2 Spirit diabetes - [facility] mellitus St with [facility] complicati Medica l on, Center without long-term current use of insulin [id number] Gouty Problem Commo n [id number] arthritis [facility] - [facility] great toes [facility] Sexual Sexual Problem Common dysfunctio dysfunctio Sp luiz n n [facility] Renal Renal Problem Common insufficie insufficie Sp luiz ncy ncy [facility] Neutropeni Neutropeni Problem C ommon a a, Spirit unspecifie - [facility] d [facility] Anemia Anemia Problem Common [facility] 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 - [facility] [id number] Microcytic Problem Co mmon anemia [facility] [id number] 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 [facility] Osteoarthr Osteoarthr Problem C ommon itis itis Spirit - [facility] Mixed Mixed Problem Common hyperlipid hyperlipid Sp luiz emia emia - [facility] Chronic Chronic Problem Common back pain back pain Spir it [facility] Elevated Elevated Problem Commo n serum serum Spirit globulin globulin - [facility] level level [facility] [id number] 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[facility] eyes, [facility] d Medical age-relate Center d cataract type Eczema Eczema, Problem Common unspecifie Spirit d type - [facility] Chronic Stage 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 prostate [facility] Bradycardi Bradycardi Problem C ommon a a Spirit [facility] [id number] Encounter Problem Com mon for Spirit general - [facility] adult [facility] examinatio Medica l n with Center abnormal findings Alcohol Alcohol Problem Common dependence dependence Sp luiz , - [facility] uncomplica [facility] Peripheral Peripheral Problem C ommon vascular vascular Spirit disease disease, - [facility] unspecifie [facility] [id number] Other Problem Common chronic Spirit pain [facility] Allergies, Adverse Reactions, Alerts Allergy Allergy Status Severity Reaction(s) Onset Inactive Treating Comm ents Source Name Type Date Date Clinician 0 Drug Active Unknown Common allergy [facility] Social History Social Habit Start Date Stop Date Quantity Comments Source History of Tobacco Use Co mmon [facility] Sex Assigned At Com mon [facility] Smoking Status Start Date Stop Date Source Never Smoker Common [facility] Medications Ordered Filled Start Stop Current Ordering Indication Dosage Frequency Signature Comments Components Source Medication Medication Date Date Medication? Clinician (SIG) Name Name Allopurinol Allopurinol 2021-06- No QD Allopurino 100 MG 100 MG 1-15 05-14 l 100 MG 00:00: 00:00 00 :00 Jardiance Jardiance 2021-06- No 1{table QD Jardiance 10 MG 10 MG 1-15 05-14 t} 10 MG 00:00: 00:00 00 :00 Allopurinol Allopurinol 2021-06- No QD Allopurino 100 MG 100 MG 1-15 05-14 l 100 MG 00:00: 00:00 00 :00 Jardiance Jardiance 2021-06- No 1{table QD Jardiance 10 MG 10 MG 1-15 05-14 t} 10 MG 00:00: 00:00 00 :00 Allopurinol Allopurinol 2021-06- No QD Allopurino 100 MG 100 MG 1-15 05-14 l 100 MG 00:00: 00:00 00 :00 Jardiance Jardiance 2021-06- No 1{table QD Jardiance 10 MG 10 MG 15 05-14 t} 10 MG 00:00: 00:00 00 :00 Gabapentin Gabapentin 2019-0 Yes Na Hamilton 1 capsule Common 4 Spirit 00:00: - [facility] 00 [facility] Metoprolol Metoprolol 2019-0 Yes Na [place] 1 tablet Common Succinate Succinate 9- Spiri t ER ER 00:00: - [facility]I 00 [facility] Hydrochloro Hydrochloro 2019-0 Yes Na [place] 1 tablet Common thiazide thiazide 9- in the Spiri t 00:00: morning - CHI 00 [facility] Triamcinolo Triamcinolo 2019-0 Yes Na [place] 1 Common ne ne 2-25 applicatio Spirit Acetonide Acetonide 00:00: n to - C HI 00 affected [facility] Tizanidine Tizanidine 2019-0 Yes Na [place] 1 TAB Common HCl HCl 2-25 EVERY 12 Spirit 00:00: HOURS PRN - CHI 00 PAIN [facility] Aspir-81 Aspir-81 Yes Na [place] 1 tablet Common [facility] Nasacort Nasacort Yes Na [place] 1 puff in Common Allergy Allergy each Spirit 24HR 24HR nostril [facility] Viagra Viagra Yes Na [place] 1 tablet Comm on as needed [facility] Yes Na Hamilton 1 tablet Co [facility] Lipitor Lipitor Yes Na [place] 1 tablet Co [facility] Ferrous Ferrous Yes Na Hamilton 1 tablet Co mmon Sulfate Sulfate [facility] Yes Na Hamilton 1 tablet Co [facility] HydrALAZINE HydrALAZINE Yes Na [place] 1 tablet Common HCl HCl with food [facility] Hydrochloro Hydrochloro Yes Na [place] 1 tablet Common thiazide thiazide in the Spiri t morning [facility] Metoprolol Metoprolol Yes Na [place] 1 tablet Common Succinate Succinate Spiri t ER ER [facility] hydroCHLORO hydroCHLORO No 1{table QD hydroCHLOR thiazide 25 thiazide 25 t_in_th Othiazide MG MG e_morni 25 MG ng} Metoprolol Metoprolol No 1{table QD Metoprolol Succinate Succinate t} Succinate ER 25 MG ER 25 MG ER 25 MG Viagra 100 Viagra 100 No 1{table QD Viagra 100 MG MG t_as_ne MG eded} Gabapentin Gabapentin No Gabapentin 600 MG 600 MG 600 MG Nasacort Nasacort No 1{puff_ QD Nasacort Allergy Allergy in_each Allergy 24HR 55 24HR 55 _nostri 24HR 55 MCG/ACT MCG/ACT l} MCG/ACT Norvasc 10 Norvasc 10 No 1{table QD Norvasc 10 MG MG t} MG Potassium Potassium No 1{capsu QD Potassium Chloride 20 Chloride 20 le} Chloride MEQ MEQ 20 MEQ Triamcinolo Triamcinolo No 1{appli BID Triamcinol ne ne cation_ one Acetonide Acetonide to_affe Acetonide 0.1 % 0.1 % cted_ar 0.1 % ea} Lipitor 40 Lipitor 40 No 1{table QD Lipitor 40 MG MG t} MG tiZANidine tiZANidine No tiZANidine HCl 2 MG HCl 2 MG HCl 2 MG Aspir-81 81 Aspir-81 81 No 1{table QD Aspir-81 MG MG t} 81 MG Ferrous Ferrous No 1{table QD Ferrous Sulfate 325 Sulfate 325 t} Sulfate (65 Fe) MG (65 Fe) MG 325 (65 Fe) MG hydrALAZINE hydrALAZINE No 1{table TID hydrALAZIN HCl 25 MG HCl 25 MG t_with_ E HCl 25 food} MG Norvasc 10 Norvasc 10 No 1{table QD Norvasc 10 MG MG t} MG Metoprolol Metoprolol No 1{table QD Metoprolol Succinate Succinate t} Succinate ER 25 MG ER 25 MG ER 25 MG Metoprolol Metoprolol No 1{table QD Metoprolol Succinate Succinate t} Succinate ER 25 MG ER 25 MG ER 25 MG Metoprolol Metoprolol No 1{table QD Metoprolol Succinate Succinate t} Succinate ER 25 MG ER 25 MG ER 25 MG Nasacort Nasacort No 1{puff_ QD Nasacort Allergy Allergy in_each Allergy 24HR 55 24HR 55 _nostri 24HR 55 MCG/ACT MCG/ACT l} MCG/ACT amLODIPine amLODIPine No amLODIPine Besylate 10 Besylate 10 Besylate MG MG 10 MG hydroCHLORO hydroCHLORO No hydroCHLOR thiazide 25 thiazide 25 Othiazide MG MG 25 MG hydrALAZINE hydrALAZINE No hydrALAZIN HCl 25 MG HCl 25 MG E HCl 25 MG Triamcinolo Triamcinolo No 1{appli BID Triamcinol ne ne cation_ one Acetonide Acetonide to_affe Acetonide 0.1 % 0.1 % cted_ar 0.1 % ea} Atorvastati Atorvastati No Atorvastat n Calcium n Calcium in Calcium 40 MG 40 MG 40 MG Viagra 100 Viagra 100 No 1{table QD Viagra 100 MG MG t_as_ne MG eded} Ferrous Ferrous No 1{table QD Ferrous Sulfate 325 Sulfate 325 t} Sulfate (65 Fe) MG (65 Fe) MG 325 (65 Fe) MG Aspir-81 81 Aspir-81 81 No 1{table QD Aspir-81 MG MG t} 81 MG Potassium Potassium No 1{capsu QD Potassium Chloride 20 Chloride 20 le} Chloride MEQ MEQ 20 MEQ Gabapentin Gabapentin No Gabapentin 600 MG 600 MG 600 MG Norvasc 10 Norvasc 10 No 1{table QD Norvasc 10 MG MG t} MG tiZANidine tiZANidine No tiZANidine HCl 2 MG HCl 2 MG HCl 2 MG Norvasc 10 Norvasc 10 No 1{table QD Norvasc 10 MG MG t} MG Gabapentin Gabapentin No Gabapentin 600 MG 600 MG 600 MG hydrALAZINE hydrALAZINE No hydrALAZIN HCl 25 MG HCl 25 MG E HCl 25 MG Atorvastati Atorvastati No Atorvastat n Calcium n Calcium in Calcium 40 MG 40 MG 40 MG Ferrous Ferrous No 1{table QD Ferrous Sulfate 325 Sulfate 325 t} Sulfate (65 Fe) MG (65 Fe) MG 325 (65 Fe) MG Norvasc 10 Norvasc 10 No 1{table QD Norvasc 10 MG MG t} MG hydroCHLORO hydroCHLORO No hydroCHLOR thiazide 25 thiazide 25 Othiazide MG MG 25 MG hydrALAZINE hydrALAZINE No 1{table TID hydrALAZIN HCl 25 MG HCl 25 MG t_with_ E HCl 25 food} MG Viagra 100 Viagra 100 No 1{table QD Viagra 100 MG MG t_as_ne MG eded} hydroCHLORO hydroCHLORO No 1{table QD hydroCHLOR thiazide 25 thiazide 25 t_in_th Othiazide MG MG e_morni 25 MG ng} amLODIPine amLODIPine No amLODIPine Besylate 10 Besylate 10 Besylate MG MG 10 MG Triamcinolo Triamcinolo No 1{appli BID Triamcinol ne ne cation_ one Acetonide Acetonide to_affe Acetonide 0.1 % 0.1 % cted_ar 0.1 % ea} Nasacort Nasacort No 1{puff_ QD Nasacort Allergy Allergy in_each Allergy 24HR 55 24HR 55 _nostri 24HR 55 MCG/ACT MCG/ACT l} MCG/ACT Aspir-81 81 Aspir-81 81 No 1{table QD Aspir-81 MG MG t} 81 MG Potassium Potassium No 1{capsu QD Potassium Chloride 20 Chloride 20 le} Chloride MEQ MEQ 20 MEQ tiZANidine tiZANidine No tiZANidine HCl 2 MG HCl 2 MG HCl 2 MG Metoprolol Metoprolol No 1{table QD Metoprolol Succinate Succinate t} Succinate ER 25 MG ER 25 MG ER 25 MG Gabapentin Gabapentin No 1{capsu Gabapentin 600 MG 600 MG le} 600 MG Lipitor 40 Lipitor 40 No 1{table QD Lipitor 40 MG MG t} MG Norvasc 10 Norvasc 10 No 1{table QD Norvasc 10 MG MG t} MG Gabapentin Gabapentin No Gabapentin 600 MG 600 MG 600 MG hydrALAZINE hydrALAZINE No hydrALAZIN HCl 25 MG HCl 25 MG E HCl 25 MG Atorvastati Atorvastati No Atorvastat n Calcium n Calcium in Calcium 40 MG 40 MG 40 MG Ferrous Ferrous No 1{table QD Ferrous Sulfate 325 Sulfate 325 t} Sulfate (65 Fe) MG (65 Fe) MG 325 (65 Fe) MG Norvasc 10 Norvasc 10 No 1{table QD Norvasc 10 MG MG t} MG hydroCHLORO hydroCHLORO No hydroCHLOR thiazide 25 thiazide 25 Othiazide MG MG 25 MG hydrALAZINE hydrALAZINE No 1{table TID hydrALAZIN HCl 25 MG HCl 25 MG t_with_ E HCl 25 food} MG Viagra 100 Viagra 100 No 1{table QD Viagra 100 MG MG t_as_ne MG eded} hydroCHLORO hydroCHLORO No 1{table QD hydroCHLOR thiazide 25 thiazide 25 t_in_th Othiazide MG MG e_morni 25 MG ng} amLODIPine amLODIPine No amLODIPine Besylate 10 Besylate 10 Besylate MG MG 10 MG Triamcinolo Triamcinolo No 1{appli BID Triamcinol ne ne cation_ one Acetonide Acetonide to_affe Acetonide 0.1 % 0.1 % cted_ar 0.1 % ea} Nasacort Nasacort No 1{puff_ QD Nasacort Allergy Allergy in_each Allergy 24HR 55 24HR 55 _nostri 24HR 55 MCG/ACT MCG/ACT l} MCG/ACT Aspir-81 81 Aspir-81 81 No 1{table QD Aspir-81 MG MG t} 81 MG Potassium Potassium No 1{capsu QD Potassium Chloride 20 Chloride 20 le} Chloride MEQ MEQ 20 MEQ tiZANidine tiZANidine No tiZANidine HCl 2 MG HCl 2 MG HCl 2 MG Metoprolol Metoprolol No 1{table QD Metoprolol Succinate Succinate t} Succinate ER 25 MG ER 25 MG ER 25 MG Gabapentin Gabapentin No 1{capsu Gabapentin 600 MG 600 MG le} 600 MG Lipitor 40 Lipitor 40 No 1{table QD Lipitor 40 MG MG t} MG Atorvastati Atorvastati No Atorvastat n Calcium n Calcium in Calcium 40 MG 40 MG 40 MG amLODIPine amLODIPine No amLODIPine Besylate 10 Besylate 10 Besylate MG MG 10 MG Gabapentin Gabapentin No Gabapentin 600 MG 600 MG 600 MG Triamcinolo Triamcinolo No 1{appli BID Triamcinol ne ne cation_ one Acetonide Acetonide to_affe Acetonide 0.1 % 0.1 % cted_ar 0.1 % ea} Metoprolol Metoprolol No 1{table QD Metoprolol Succinate Succinate t} Succinate ER 25 MG ER 25 MG ER 25 MG Ferrous Ferrous No 1{table QD Ferrous Sulfate 325 Sulfate 325 t} Sulfate (65 Fe) MG (65 Fe) MG 325 (65 Fe) MG Norvasc 10 Norvasc 10 No 1{table QD Norvasc 10 MG MG t} MG Aspir-81 81 Aspir-81 81 No 1{table QD Aspir-81 MG MG t} 81 MG hydroCHLORO hydroCHLORO No 1{table QD hydroCHLOR thiazide 25 thiazide 25 t_in_th Othiazide MG MG e_morni 25 MG ng} Potassium Potassium No 1{capsu QD Potassium Chloride 20 Chloride 20 le} Chloride MEQ MEQ 20 MEQ Lipitor 40 Lipitor 40 No 1{table QD Lipitor 40 MG MG t} MG Nasacort Nasacort No 1{puff_ QD Nasacort Allergy Allergy in_each Allergy 24HR 55 24HR 55 _nostri 24HR 55 MCG/ACT MCG/ACT l} MCG/ACT Norvasc 10 Norvasc 10 No 1{table QD Norvasc 10 MG MG t} MG Viagra 100 Viagra 100 No 1{table QD Viagra 100 MG MG t_as_ne MG eded} Gabapentin Gabapentin No 1{capsu Gabapentin 600 MG 600 MG le} 600 MG tiZANidine tiZANidine No tiZANidine HCl 2 MG HCl 2 MG HCl 2 MG hydrALAZINE hydrALAZINE No 1{table TID hydrALAZIN HCl 25 MG HCl 25 MG t_with_ E HCl 25 food} MG Metoprolol Metoprolol No 1{table QD Metoprolol Succinate Succinate t} Succinate ER 25 MG ER 25 MG ER 25 MG amLODIPine amLODIPine No amLODIPine Besylate 10 Besylate 10 Besylate MG MG 10 MG Norvasc 10 Norvasc 10 No 1{table QD Norvasc 10 MG MG t} MG Viagra 100 Viagra 100 No 1{table QD Viagra 100 MG MG t_as_ne MG eded} Gabapentin Gabapentin No Gabapentin 600 MG 600 MG 600 MG hydroCHLORO hydroCHLORO No 1{table QD hydroCHLOR thiazide 25 thiazide 25 t_in_th Othiazide MG MG e_morni 25 MG ng} Aspir-81 81 Aspir-81 81 No 1{table QD Aspir-81 MG MG t} 81 MG Atorvastati Atorvastati No 1{table QD Atorvastat n Calcium n Calcium t} in Calcium 40 MG 40 MG 40 MG Potassium Potassium No 1{capsu QD Potassium Chloride 20 Chloride 20 le} Chloride MEQ MEQ 20 MEQ Triamcinolo Triamcinolo No 1{appli BID Triamcinol ne ne cation_ one Acetonide Acetonide to_affe Acetonide 0.1 % 0.1 % cted_ar 0.1 % ea} Ferrous Ferrous No 1{table QD Ferrous Sulfate 325 Sulfate 325 t} Sulfate (65 Fe) MG (65 Fe) MG 325 (65 Fe) MG Norvasc 10 Norvasc 10 No 1{table QD Norvasc 10 MG MG t} MG tiZANidine tiZANidine No tiZANidine HCl 2 MG HCl 2 MG HCl 2 MG Gabapentin Gabapentin No 1{capsu Gabapentin 600 MG 600 MG le} 600 MG Nasacort Nasacort No 1{puff_ QD Nasacort Allergy Allergy in_each Allergy 24HR 55 24HR 55 _nostri 24HR 55 MCG/ACT MCG/ACT l} MCG/ACT hydrALAZINE hydrALAZINE No 1{table TID hydrALAZIN HCl 25 MG HCl 25 MG t_with_ E HCl 25 food} MG hydrALAZINE hydrALAZINE No 1{table TID hydrALAZIN HCl 25 MG HCl 25 MG t_with_ E HCl 25 food} MG Norvasc 10 Norvasc 10 No 1{table QD Norvasc 10 MG MG t} MG Norvasc 10 Norvasc 10 No 1{table QD Norvasc 10 MG MG t} MG Nasacort Nasacort No 1{puff_ QD Nasacort Allergy Allergy in_each Allergy 24HR 55 24HR 55 _nostri 24HR 55 MCG/ACT MCG/ACT l} MCG/ACT Gabapentin Gabapentin No Gabapentin 600 MG 600 MG 600 MG hydroCHLORO hydroCHLORO No 1{table QD hydroCHLOR thiazide 25 thiazide 25 t_in_th Othiazide MG MG e_morni 25 MG ng} Atorvastati Atorvastati No 1{table QD Atorvastat n Calcium n Calcium t} in Calcium 40 MG 40 MG 40 MG Metoprolol Metoprolol No 1{table QD Metoprolol Succinate Succinate t} Succinate ER 25 MG ER 25 MG ER 25 MG Gabapentin Gabapentin No 1{capsu Gabapentin 600 MG 600 MG le} 600 MG Viagra 100 Viagra 100 No 1{table QD Viagra 100 MG MG t_as_ne MG eded} tiZANidine tiZANidine No tiZANidine HCl 2 MG HCl 2 MG HCl 2 MG Aspir-81 81 Aspir-81 81 No 1{table QD Aspir-81 MG MG t} 81 MG Potassium Potassium No 1{capsu QD Potassium Chloride 20 Chloride 20 le} Chloride MEQ MEQ 20 MEQ Ferrous Ferrous No 1{table QD Ferrous Sulfate 325 Sulfate 325 t} Sulfate (65 Fe) MG (65 Fe) MG 325 (65 Fe) MG Triamcinolo Triamcinolo No 1{appli BID Triamcinol ne ne cation_ one Acetonide Acetonide to_affe Acetonide 0.1 % 0.1 % cted_ar 0.1 % ea} amLODIPine amLODIPine No 1{table QD amLODIPine Besylate 10 Besylate 10 t} Besylate MG MG 10 MG Norvasc 10 Norvasc 10 No 1{table QD Norvasc 10 MG MG t} MG Gabapentin Gabapentin No Gabapentin 600 MG 600 MG 600 MG hydrALAZINE hydrALAZINE No hydrALAZIN HCl 25 MG HCl 25 MG E HCl 25 MG Atorvastati Atorvastati No Atorvastat n Calcium n Calcium in Calcium 40 MG 40 MG 40 MG Ferrous Ferrous No 1{table QD Ferrous Sulfate 325 Sulfate 325 t} Sulfate (65 Fe) MG (65 Fe) MG 325 (65 Fe) MG Norvasc 10 Norvasc 10 No 1{table QD Norvasc 10 MG MG t} MG hydroCHLORO hydroCHLORO No hydroCHLOR thiazide 25 thiazide 25 Othiazide MG MG 25 MG hydrALAZINE hydrALAZINE No 1{table TID hydrALAZIN HCl 25 MG HCl 25 MG t_with_ E HCl 25 food} MG Viagra 100 Viagra 100 No 1{table QD Viagra 100 MG MG t_as_ne MG eded} hydroCHLORO hydroCHLORO No 1{table QD hydroCHLOR thiazide 25 thiazide 25 t_in_th Othiazide MG MG e_morni 25 MG ng} amLODIPine amLODIPine No amLODIPine Besylate 10 Besylate 10 Besylate MG MG 10 MG Triamcinolo Triamcinolo No 1{appli BID Triamcinol ne ne cation_ one Acetonide Acetonide to_affe Acetonide 0.1 % 0.1 % cted_ar 0.1 % ea} Nasacort Nasacort No 1{puff_ QD Nasacort Allergy Allergy in_each Allergy 24HR 55 24HR 55 _nostri 24HR 55 MCG/ACT MCG/ACT l} MCG/ACT Aspir-81 81 Aspir-81 81 No 1{table QD Aspir-81 MG MG t} 81 MG Potassium Potassium No 1{capsu QD Potassium Chloride 20 Chloride 20 le} Chloride MEQ MEQ 20 MEQ tiZANidine tiZANidine No tiZANidine HCl 2 MG HCl 2 MG HCl 2 MG Metoprolol Metoprolol No 1{table QD Metoprolol Succinate Succinate t} Succinate ER 25 MG ER 25 MG ER 25 MG Gabapentin Gabapentin No 1{capsu Gabapentin 600 MG 600 MG le} 600 MG Lipitor 40 Lipitor 40 No 1{table QD Lipitor 40 MG MG t} MG hydroCHLORO hydroCHLORO No 1{table QD hydroCHLOR thiazide 25 thiazide 25 t_in_th Othiazide MG MG e_morni 25 MG ng} Metoprolol Metoprolol No 1{table QD Metoprolol Succinate Succinate t} Succinate ER 25 MG ER 25 MG ER 25 MG Gabapentin Gabapentin No Gabapentin 600 MG 600 MG 600 MG Lipitor 40 Lipitor 40 No 1{table QD Lipitor 40 MG MG t} MG Nasacort Nasacort No 1{puff_ QD Nasacort Allergy Allergy in_each Allergy 24HR 55 24HR 55 _nostri 24HR 55 MCG/ACT MCG/ACT l} MCG/ACT Viagra 100 Viagra 100 No 1{table QD Viagra 100 MG MG t_as_ne MG eded} Norvasc 10 Norvasc 10 No 1{table QD Norvasc 10 MG MG t} MG Potassium Potassium No 1{capsu QD Potassium Chloride 20 Chloride 20 le} Chloride MEQ MEQ 20 MEQ Triamcinolo Triamcinolo No 1{appli BID Triamcinol ne ne cation_ one Acetonide Acetonide to_affe Acetonide 0.1 % 0.1 % cted_ar 0.1 % ea} Norvasc 10 Norvasc 10 No 1{table QD Norvasc 10 MG MG t} MG tiZANidine tiZANidine No tiZANidine HCl 2 MG HCl 2 MG HCl 2 MG Metoprolol Metoprolol No 1{table QD Metoprolol Succinate Succinate t} Succinate ER 25 MG ER 25 MG ER 25 MG Ferrous Ferrous No 1{table QD Ferrous Sulfate 325 Sulfate 325 t} Sulfate (65 Fe) MG (65 Fe) MG 325 (65 Fe) MG hydrALAZINE hydrALAZINE No 1{table TID hydrALAZIN HCl 25 MG HCl 25 MG t_with_ E HCl 25 food} MG Aspir-81 81 Aspir-81 81 No 1{table QD Aspir-81 MG MG t} 81 MG Gabapentin Gabapentin No 1{capsu Gabapentin 600 MG 600 MG le} 600 MG Immunizations Ordered Immunization Filled Immunization Date Status Commen ts Source Name Name Prevnar 13 Prevnar 2018-10-31 Completed [facility] Vacc[facility] -Pneumonia Vaccine 09:43:00 - [facility] Prevnar 13 Prevnar 2018-10-31 Completed [facility] -[facility]neumonia Vaccine -Pneumonia Vaccine 09:43:00 - [facility] Prevnar 13 Prevnar 2018-10-31 Completed [facility] -[facility]neumonia Vaccine -Pneumonia Vaccine 09:43:00 - [facility] Prevnar 13 Prevnar 2018-10-31 Completed [facility] -[facility]neumonia Vaccine -Pneumonia Vaccine 09:43:00 - [facility] Prevnar 13 Prevnar 2018-10-31 Completed [facility] -Pneumonia Vaccine -Pneumonia Vaccine 09:43:00 - [facility] Prevnar 13 Prevnar 2018-10-31 Completed [facility] -[facility]neumonia Vaccine -Pneumonia Vaccine 09:43:00 - [facility] Prevnar 13 Prevnar 2018-10-31 Completed [facility] -Pneumonia Vaccine -Pneumonia Vaccine 09:43:00 - [facility] Prevnar 13 Prevnar 2018-10-31 Completed [facility] -Pneumonia Vaccine -Pneumonia Vaccine 09:43:00 - [facility] Prevnar 13 Prevnar 2018-10-31 Completed [facility] -Pneumonia Vaccine -Pneumonia Vaccine 09:43:00 [facility] Prevnar 13 Prevnar 13 2018-10-31 Completed [facility] -Pneumonia Vaccine -Pneumonia Vaccine 00:00:00 [facility] Vital Signs Vital Name Observation Time Observation Value Comments Source height 2022-04-20 10:00:00 72.00 [in_i] [facility] weight 2022-04-20 10:00:00 208.0 [lb_av] [facility] temperature 2022-04-20 10:00:00 97.4 [degF] [facility] bmi 2022-04-20 10:00:00 28.21 kg/m2 [facility] oximetry 2022-04-20 10:00:00 100 % [facility] respiratory rate 2022-04-20 10:00:00 16 /min Comm on [facility] blood pressure 2022-04-20 10:00:00 136 mm[Hg] [facility] [place] systolic [facility] blood pressure 2022-04-20 10:00:00 68 mm[Hg] [facility] [place] [place] diastolic [facility] height 2022-01-14 14:20:00 72.00 [in_i] [facility] weight 2022-01-14 14:20:00 214.2 [lb_av] [facility] temperature 2022-01-14 14:20:00 98.0 [degF] [facility] bmi 2022-01-14 14:20:00 29.05 kg/m2 [facility] oximetry 2022-01-14 14:20:00 98 % [facility] respiratory rate 2022-01-14 14:20:00 16 /min Comm on [facility] blood pressure 2022-01-14 14:20:00 138 mm[Hg] [facility] - systolic [facility] blood pressure 2022-01-14 14:20:00 70 mm[Hg] [facility] - diastolic [facility] height 2021-04-21 14:40:00 72.00 [in_i] [facility] weight 2021-04-21 14:40:00 212.4 [lb_av] [facility] temperature 2021-04-21 14:40:00 97.9 [degF] [facility] bmi 2021-04-21 14:40:00 28.8 kg/m2 [facility] oximetry 2021-04-21 14:40:00 98 % [facility] respiratory rate 2021-04-21 14:40:00 18 /min Comm on [facility] blood pressure 2021-04-21 14:40:00 139 mm[Hg] [facility] - systolic [facility] blood pressure 2021-04-21 14:40:00 50 mm[Hg] [facility] diastolic [facility] Procedures This patient has no known procedures. Encounters Start End Encounter Admission Attending Care Care Encounter Source Date/Time Date/Time Type Type Clinicians Facility Department ID 2022-07-08 Outpatient Hillary, STLMLC STLMLC [id number] Common 14:06:01 Sindy [id number] [facility] 2022-04-19 Outpatient Hamilton, Na STLMLC STLMLC [id number] Common 08:11:00 [facility] 2022-02-03 Outpatient Hamilton, Na STLMLC STLMLC [id number] Common 14:42:00 [facility] 2022-01-14 Outpatient Hamilton, Na STLMLC STLMLC [id number] Common 14:24:01 [facility] 2022-01-12 Outpatient Hamilton, Na STLMLC STLMLC [id number] Common 14:50:00 [facility] 2021-10-27 Outpatient [place], Na STLMLC STLMLC [id number] 2 Common 15:49:00 [facility] 2021-07-01 Outpatient [place], Na STLMLC STLMLC [id number] 2 Common 14:14:03 [id number] [facility] 2021-07-01 Outpatient [place], Na STLMLC STLMLC [id number] 2 Common 13:51:23 [id number] [facility] 2021-07-01 Outpatient [place], Na STLMLC STLMLC [id number] 2 Common 12:23:58 [id number] [facility] 2021-07-01 Outpatient [place], Na STLMLC STLMLC [id number] 2 Common 12:21:34 [id number] [facility] 2021-07-01 Outpatient [place], Na STLMLC STLMLC [id number] 2 Common 12:15:00 [id number] [facility] 2021-07-01 Outpatient [place], Na STLMLC STLMLC [id number] 2 Common 12:13:57 [id number] [facility] 2021-07-01 Outpatient [place], Na STLMLC STLMLC [id number] 2 Common 11:20:46 [id number] [facility] 2021-07-01 Outpatient [place], Na STLMLC STLMLC [id number] 2 Common 11:19:48 [id number] [facility] 2021-07-01 Outpatient [place], Na STLMLC STLMLC [id number] 2 Common 11:16:50 [id number] [facility] 2021-07-01 Outpatient [place], Na STLMLC STLMLC [id number] 2 Common 11:16:33 [id number] [facility] 2021-07-01 Outpatient [place], Na STLMLC STLMLC [id number] 2 Common 11:00:27 [id number] [facility] 2022-07-13 2022-07-13 (TEL) STLMLC STLMLC [id number] Co mmon 00:00:00 00:00:00 [facility] 2022-07-08 2022-07-08 (TEL) STLMLC STLMLC [id number] Co mmon 00:00:00 00:00:00 [facility] 2022-04-20 2022-04-20 OFFICE STLMLC STLMLC [id number] Co mmon 00:00:00 00:00:00 [facility] - CHI LEVEL 4 [facility] 2022-02-17 2022-02-17 (TEL) STLMLC STLMLC [id number] Co mmon 00:00:00 00:00:00 [facility] 2022-01-14 2022-01-14 OFFICE STLMLC STLMLC [id number] Co mmon 00:00:00 00:00:00 VISIT [facility] ESTAB PT - CHI LEVEL 4 [facility] 2021-10-12 2021-10-12 (TEL) STLMLC STLMLC [id number] Co mmon 00:00:00 00:00:00 [facility] 2021-04-21 2021-04-21 OFFICE STLMLC STLMLC [id number] Co mmon 00:00:00 00:00:00 VISIT [facility] ESTAB PT - CHI LEVEL 4 [facility] 2021-04-17 2021-04-17 (TEL) STLMLC STLMLC [id number] Co mmon 00:00:00 00:00:00 [facility] 2021-01-26 2021-01-26 Outpatient STLMLC STLMLC [id number] Common 00:00:00 00:00:00 [facility] 2020-12-30 2020-12-30 Outpatient STLMLC STLMLC [id number] Common 00:00:00 00:00:00 [facility] 2020-12-30 2020-12-30 Outpatient STLMLC STLMLC [id number] Common 00:00:00 00:00:00 [facility] 2020-05-28 2020-05-28 Outpatient STLMLC STLMLC [id number] Common 00:00:00 00:00:00 [facility] 2019-09-05 2019-09-05 [facility] [id number] Common 08:40:00 08:40:[address] [facility] 2019-08-27 2019-08-27 [facility] [id number] Common 08:56:00 08:56:[address] [facility] 2019-03-01 2019-03-01 [facility] [id number] Common 10:00:00 10:00:[address] [facility] 2019-01-31 2019-01-31 [facility] [id number] Common 10:00:00 10:00:[address] [facility] 2018-10-31 2018-10-31 [facility] [id number] Common 09:00:00 09:00:[address] [facility] 2018-07-31 2018-07-31 [facility] [id number] Common 10:30:00 10:30:[address] [facility] 2017-12-15 2017-12-15 [facility] [id number] Common 08:30:00 08:30:[address] [facility] 2017-09-14 2017-09-14 [facility] [id number] Common 09:15:00 09:15:[address] [facility] Results This patient has no known results.
[2022-08-14] MEDS ORDERED: CYCLOBENZAPRINE 10 MG TAB ONE (15:10)
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
[2022-08-14 16:25] VITALS: TEMP 98
[2022-08-14 16:26] VITALS: BP 142/68; O2SAT 99
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
== END 2022-08-14 16:01 | disposition home or self-care (01) ==
LOC: ER 14:28
DX: S16.1XXA Strain of muscle, fascia and tendon at neck level, initial encounter (principal); S39.012A Strain of muscle, fascia and tendon of lower back, initial encounter; S39.013A Strain of muscle, fascia and tendon of pelvis, initial encounter; I10 Essential (primary) hypertension; Z88.0 Allergy status to penicillin; Z88.5 Allergy status to narcotic agent
CPT/HCPCS: 70450; 71045; 72100; 72125; 99283

== ENCOUNTER 2022-11-07 06:34 | Emergency (ER) | payer OTHER ==
--- OUTSIDE RECORDS SUMMARY | 2022-11-07 06:39 | XMS REPORT | Continuity of Care Document ---
:1945 Author Organization [facility] t Address [address] [facility] [address] [place] [address] Care Team Providers Name Role Phone Keeley Chatman Attending Clinician Unavailable Sindy Thornton Attending Clinician Unavailable Sophia Hamilton Attending Clinician Unavailable Payers Payer Name Policy Type Policy Number Effective Date Expiration Date Hemanth segundo [facility] 53 [id number] [facility] Medicare - [facility] ([facility]) [facility] Problems Condition Condition Condition Status Onset Resolution Last Treating Co mments Source Name Details Category Date Date Treatment Clinician Date [id number] Controlled Problem Com mon type 2 Spirit diabetes - [facility] mellitus St with [facility] complicati Medica l on, Center without long-term current use of insulin [id number] Gouty Problem Commo n [id number] [facility] of both - [facility] great toes [facility] Sexual Sexual Problem Common dysfunctio dysfunctio Sp luiz n n [place] Renal Renal Problem Common insufficie insufficie Sp luiz ncy ncy [place] Neutropeni Neutropeni Problem C ommon a a, Spirit unspecifie - CHI d [facility] Anemia Anemia Problem Common [facility] 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 - [facility] [id number] Microcytic Problem Co mmon anemia [facility] [id number] 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 - CHI [facility] Osteoarthr Osteoarthr Problem C ommon itis itis Spirit - CHI [facility] Mixed Mixed Problem Common hyperlipid hyperlipid Sp luiz emia emia - [facility] Chronic Chronic Problem Common back pain back pain Spir it [place] Elevated Elevated Problem Commo n serum serum Spirit globulin globulin - CHI level level [facility] [id number] 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 d cataract type Eczema Eczema, Problem Common unspecifie Spirit d type - CHI [facility] Chronic Stage 3a Problem Common kidney chronic Spirit disease kidney - CHI stage 3A disease [facility] [id number] Screening Problem Com mon for Spirit malignant - CHI neoplasm [facility] Alcohol Alcohol Problem Common abuse abuse [facility] [id number] Elevated Problem Commo n blood Spirit pressure - CHI reading in [facility] with Medical diagnosis Center of hypertensi on Screening Screening Problem Com mon for for Spirit malignant prostate - CHI neoplasm cancer [facility] prostate [facility] Bradycardi Bradycardi Problem C ommon a a Spirit [place] [id number] Encounter Problem Com mon for Spirit general - CHI adult [facility] examinatio Medica l n with Center abnormal findings Alcohol Alcohol Problem Common dependence dependence Sp luiz , - CHI uncomplica [facility] Peripheral Peripheral Problem C ommon vascular vascular Spirit disease disease, - CHI unspecifie [facility] [id number] Other Problem Common chronic Spirit pain [place] Allergies, Adverse Reactions, Alerts Allergy Allergy Status Severity Reaction(s) Onset Inactive Treating Comm ents Source Name Type Date Date Clinician 0 Drug Active Unknown Common allergy [facility] Social History Social Habit Start Date Stop Date Quantity Comments Source History of Tobacco Use Co mmon [facility] Sex Assigned At Com mon [facility] Smoking Status Start Date Stop Date Source Never Smoker Common [facility] Medications Ordered Filled Start Stop Current Ordering Indication Dosage Frequency Signature Comments Components Source Medication Medication Date Date Medication? Clinician (SIG) Name Name Jardiance Jardiance 2021-06- No 1{table QD Jardiance [...] l 100 MG 00:00: 00:00 00 :00 Gabapentin Gabapentin 2020-0 Yes Na Hamilton 1 capsule Common 4 Spirit 00:00: - CHI 00 [facility] Metoprolol Metoprolol 2019-0 Yes Na Hamilton 1 tablet Common Succinate Succinate 9- Spiri t ER ER 00:00: - CHI 00 [facility] Hydrochloro Hydrochloro 2019-0 Yes Na Hamilton 1 tablet Common thiazide thiazide 9- in the Spiri t 00:00: morning - CHI 00 [facility] Triamcinolo Triamcinolo 2019-0 Yes Na Hamilton 1 Common ne ne 2-25 applicatio Spirit Acetonide Acetonide 00:00: n to - C HI 00 affected [facility] Tizanidine Tizanidine 2019-0 Yes Na Hamilton 1 TAB Common HCl HCl 2-25 EVERY 12 Spirit 00:00: HOURS PRN - CHI 00 PAIN [facility] Aspir-81 Aspir-81 Yes Na Hamilton 1 tablet Common Spirit - CHI [facility] Nasacort Nasacort Yes Na Hamilton 1 puff in Common Allergy Allergy each Spirit 24HR 24HR nostril - CHI [facility] Viagra Viagra Yes Na Hamilton 1 tablet Comm on as needed [facility] Norvasc Norvasc Yes Na Hamilton 1 tablet Co [facility] Lipitor Lipitor Yes Na Hamilton 1 tablet Co [facility] Ferrous Ferrous Yes Na Hamilton 1 tablet Co mmon Sulfate Sulfate [facility] Norvasc Norvasc Yes Na Hamilton 1 tablet Co [facility] HydrALAZINE HydrALAZINE Yes Na Hamilton 1 tablet Common HCl HCl with food [facility] Hydrochloro Hydrochloro Yes Na Hamilton 1 tablet Common thiazide thiazide in the Spiri t morning [place] Metoprolol Metoprolol Yes Na Hamilton 1 tablet Common Succinate Succinate Spiri t ER ER [place] hydroCHLORO hydroCHLORO No 1{table QD hydroCHLOR thiazide [...] Spirit -Pneumonia Vaccine -Pneumonia Vaccine 09:43:00 - [facility] Prevnar 13 Prevnar 2018-10-31 Completed [facility] -Pneumonia Vaccine -Pneumonia Vaccine 09:43:00 - [facility] Prevnar 13 Prevnar 2018-10-31 Completed [facility] -Pneumonia Vaccine -Pneumonia Vaccine 09:43:00 - [facility] Prevnar 13 Prevnar 2018-10-31 Completed [facility] -Pneumonia Vaccine -Pneumonia Vaccine 09:43:00 - [facility] Prevnar 13 Prevnar 2018-10-31 Completed [facility] -Pneumonia Vaccine -Pneumonia Vaccine 09:43:00 - [facility] Prevnar 13 Prevnar 2018-10-31 Completed [facility] -Pneumonia Vaccine -Pneumonia Vaccine 09:43:00 - [facility] Prevnar 13 Prevnar 2018-10-31 Completed [facility] -Pneumonia Vaccine -Pneumonia Vaccine 09:43:00 - [facility] Prevnar 13 Prevnar 2018-10-31 Completed [facility] -Pneumonia Vaccine -Pneumonia Vaccine 09:43:00 - [facility] Prevnar 13 Prevnar 13 2018-10-31 Completed [facility] -Pneumonia Vaccine -Pneumonia Vaccine 09:43:00 [place] Prevnar 13 Prevnar 13 2018-10-31 Completed [facility] -Pneumonia Vaccine -Pneumonia Vaccine 00:00:00 [place] Vital Signs Vital Name Observation Time Observation Value Comments Source height 2022-04-20 10:00:00 72.00 [in_i] Common [facility] weight 2022-04-20 10:00:00 208.0 [lb_av] [facility] temperature 2022-04-20 10:00:00 97.4 [degF] [facility] bmi 2022-04-20 10:00:00 28.21 kg/m2 [facility] oximetry 2022-04-20 10:00:00 100 % [facility] respiratory rate 2022-04-20 10:00:00 16 /min Comm on [facility] blood pressure 2022-04-20 10:00:00 136 mm[Hg] [facility] - systolic [facility] blood pressure 2022-04-20 10:00:00 68 mm[Hg] [facility] - diastolic [facility] height 2022-01-14 14:20:00 72.00 [in_i] [facility] weight 2022-01-14 14:20:00 214.2 [lb_av] [facility] temperature 2022-01-14 14:20:00 98.0 [degF] [facility] bmi 2022-01-14 14:20:00 29.05 kg/m2 [facility] oximetry 2022-01-14 14:20:00 98 % [facility] respiratory rate 2022-01-14 14:20:00 16 /min Comm on [facility] blood pressure 2022-01-14 14:20:00 138 mm[Hg] Common [facility] - systolic [facility] blood pressure 2022-01-14 14:20:00 70 mm[Hg] Common [facility] - diastolic [facility] height 2021-04-21 14:40:00 72.00 [in_i] [facility] weight 2021-04-21 14:40:00 212.4 [lb_av] [facility] temperature 2021-04-21 14:40:00 97.9 [degF] [facility] bmi 2021-04-21 14:40:00 28.8 kg/m2 [facility] oximetry 2021-04-21 14:40:00 98 % [facility] respiratory rate 2021-04-21 14:40:00 18 /min Comm on [facility] blood pressure 2021-04-21 14:40:00 139 mm[Hg] [facility] - systolic [facility] blood pressure 2021-04-21 14:40:00 50 mm[Hg] [facility] diastolic [facility] Procedures This patient has no known procedures. Encounters Start End Encounter Admission Attending Care Care Encounter Source Date/Time Date/Time Type Type Clinicians Facility Department ID 2022-08-23 Outpatient Chatman, STLMLC STLMLC [id number] Common 14:12:00 Keeley [id number] [facility] 2022-07-08 Outpatient Hillary, STLMLC STLMLC [id number] Common 14:06:01 Sindy [id number] [facility] 2022-04-19 Outpatient Hamilton, Na STLMLC STLMLC [id number] 2 Common 08:11:00 [id number] [facility] 2022-02-03 Outpatient Hamilton, Na STLMLC STLMLC [id number] 2 Common 14:42:00 [facility] 2022-01-14 Outpatient Hamilton, Na STLMLC STLMLC [id number] 2 Common 14:24:01 [facility] 2022-01-12 Outpatient Hamliton, Na STLMLC STLMLC [id number] 2 Common 14:50:00 [facility] 2021-10-27 Outpatient Hamilton, Na STLMLC STLMLC [id number] 2 Common 15:49:00 [facility] 2021-07-01 Outpatient Hamilton, Na STLMLC STLMLC [id number] 2 Common 14:14:03 [id number] [facility] 2021-07-01 Outpatient Hamilton, Na STLMLC STLMLC [id number] 2 Common 13:51:23 [id number] [facility] 2021-07-01 Outpatient Hamilton, Na STLMLC STLMLC [id number] 2 Common 12:23:58 [id number] [facility] 2021-07-01 Outpatient Hamilton, Na STLMLC STLMLC [id number] 2 Common 12:21:34 [id number] [facility] 2021-07-01 Outpatient Hamilton, Na STLMLC STLMLC [id number] 2 Common 12:15:00 [id number] [facility] 2021-07-01 Outpatient Hamilton, Na STLMLC STLMLC [id number] 2 Common 12:13:57 [id number] [facility] 2021-07-01 Outpatient Hamilton, Na STLMLC STLMLC [id number] 2 Common 11:20:46 [id number] [facility] 2021-07-01 Outpatient Hamilton, Na STLMLC STLMLC [id number] 2 Common 11:19:48 [id number] [facility] 2021-07-01 Outpatient Hamilton, Na STLMLC STLMLC [id number] 2 Common 11:16:50 [id number] [facility] 2021-07-01 Outpatient Hamilton, Na STLMLC STLMLC [id number] 2 Common 11:16:33 [id number] [facility] 2021-07-01 Outpatient Hamilton, Na STLMLC STLMLC [id number] 2 Common 11:00:27 [id number] [facility] 2022-07-13 2022-07-13 (TEL) STLMLC STLMLC [id number] Co mmon 00:00:00 00:00:00 [facility] 2022-07-08 2022-07-08 (TEL) STLMLC STLMLC [id number] Co mmon 00:00:00 00:00:00 [facility] 2022-04-20 2022-04-20 OFFICE STLMLC STLMLC [id number] Co mmon 00:00:00 00:00:00 VISIT [facility] PT - CHI [address] 2022-02-17 2022-02-17 (TEL) STLMLC STLMLC [id number] Co mmon 00:00:00 00:00:00 [facility] 2022-01-14 2022-01-14 OFFICE STLMLC STLMLC [id number] Co mmon 00:00:00 00:00:00 VISIT [facility] PT - CHI [address] 2021-10-12 2021-10-12 (TEL) STLMLC STLMLC [id number] Co mmon 00:00:00 00:00:00 [facility] 2021-04-21 2021-04-21 OFFICE STLMLC STLMLC [id number] Co mmon 00:00:00 00:00:00 VISIT [facility] PT - CHI [address] 2021-04-17 2021-04-17 (TEL) STLMLC STLMLC [id number] Co mmon 00:00:00 00:00:00 [facility] 2021-01-26 2021-01-26 Outpatient STLMLC STLMLC [id number] Common 00:00:00 00:00:00 [facility] 2020-12-30 2020-12-30 Outpatient STLMLC STLMLC [id number] Common 00:00:00 00:00:00 [facility] 2020-12-30 2020-12-30 Outpatient STLMLC STLMLC [id number] Common 00:00:00 00:00:00 [facility] 2020-05-28 2020-05-28 Outpatient STLMLC STLMLC [id number] Common 00:00:00 00:00:00 [facility] 2019-09-05 2019-09-05 [facility] [id number] Common 08:40:00 08:40:[address] [facility] 2019-08-27 2019-08-27 [facility] [id number] Common 08:56:00 08:56:[address] [facility] 2019-03-01 2019-03-01 [facility] [id number] Common 10:00:00 10:00:[address] [facility] 2019-01-31 2019-01-31 [facility] [id number] Common 10:00:00 10:00:[address] [facility] 2018-10-31 2018-10-31 [facility] [id number] Common 09:00:00 09:00:[address] [facility] 2018-07-31 2018-07-31 [facility] [id number] Common 10:30:00 10:30:[address] [facility] 2017-12-15 2017-12-15 [facility] [id number] Common 08:30:00 08:30:[address] [facility] 2017-09-14 2017-09-14 [facility] [id number] Common 09:15:00 09:15:[address] [facility] Results This patient has no known results.
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
[2022-11-07 07:52] VITALS: BP 141/74; TEMP 98; O2SAT 99
== END 2022-11-07 07:47 | disposition home or self-care (01) ==
LOC: ER 06:34
DX: K59.00 Constipation, unspecified (principal); I10 Essential (primary) hypertension; Z88.0 Allergy status to penicillin; Z88.5 Allergy status to narcotic agent
CPT/HCPCS: 99282

== ENCOUNTER 2023-04-24 11:02 | Emergency (ER) | payer OTHER ==
--- OUTSIDE RECORDS SUMMARY | 2023-04-24 11:06 | XMS REPORT | Continuity of Care Document ---
:1945 Author Organization [facility] t Address [address] [facility] [address] [place] [address] Care Team Providers Name Role Phone Keeley Chatman Attending Clinician Unavailable Sindy Thornton Attending Clinician Unavailable Sophia Hamilton Attending Clinician Unavailable Payers Payer Name Policy Type Policy Number Effective Date Expiration Date S sanya [facility] MCR 53 [id number] Common Spiri t Complete (O) - [facility] MCR Dual [id number] 2022 Common Spiri t Complete 00:00:00 - [facility] (HMO-POS D-SNP) 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 [facility] Sexual Sexual Problem Common dysfunctio dysfunctio Sp luiz n n - [facility] Renal Renal Problem Common insufficie insufficie Sp luiz ncy ncy - [facility] Neutropeni Neutropeni Problem C ommon a a, Spirit unspecifie - CHI d [facility] Anemia Anemia Problem Common Spirit [facility] 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 - [facility] [id number] Microcytic Problem Co mmon anemia [facility] [id number] 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 [facility] Osteoarthr Osteoarthr Problem C ommon itis itis [facility] Mixed Mixed Problem Common hyperlipid hyperlipid Sp luiz emia emia [facility] Chronic Chronic Problem Common back pain back pain Spir it [facility] Elevated Elevated Problem Commo n serum serum Spirit globulin globulin - CHI level level [facility] [id number] 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, - CHI unspecifie [facility] [id number] Other Problem Common chronic Spirit pain [facility] Allergies, Adverse Reactions, Alerts Allergy Allergy Status Severity Reaction(s) Onset Inactive Treating Comm ents Source Name Type Date Date Clinician 0 Drug Active Unknown Common allergy [facility] Social History Social Habit Start Date Stop Date Quantity Comments Source History of Tobacco Use Co mmon Spirit [facility] Sex Assigned At Com mon Spirit - [facility] Smoking Status Start Date Stop Date Source Never Smoker Common Spirit - [facility] Medications Ordered Filled Start Stop Current [...] No QD Allopurino 100 MG 100 MG -15 05-14 l 100 MG 00:00: 00:00 00 :00 Jardiance Jardiance 2021-06- No 1{table QD Jardiance 10 MG 10 MG 1-15 05-14 t} 10 MG 00:00: 00:00 00 :00 Allopurinol Allopurinol 2021-06- No QD Allopurino 100 MG 100 MG -15 05-14 l 100 MG 00:00: 00:00 00 :00 Jardiance Jardiance 2021-06- No 1{table QD Jardiance 10 MG 10 MG 15 05-14 t} 10 MG 00:00: 00:00 00 :00 Gabapentin Gabapentin 2019-0 Yes Na Hamilton 1 capsule Common 09-04 Spirit 00:00: - CHI [facility] Metoprolol Metoprolol 2019-0 Yes Na [place] 1 tablet Common Succinate Succinate 9- Spiri t ER ER 00:00: - CHI [facility] Hydrochloro Hydrochloro 2019-0 Yes Na Hamilton 1 tablet Common thiazide thiazide 9- in the Spiri t 00:00: morning - CHI [facility] Triamcinolo Triamcinolo 2019-0 Yes Na [place] 1 Common ne ne 2-25 applicatio Spirit Acetonide Acetonide 00:00: n to - C HI 00 affected [facility] Tizanidine Tizanidine 2019-0 Yes Na [place] 1 TAB Common HCl HCl 2-25 EVERY 12 Spirit 00:00: HOURS PRN - CHI [address] [facility] Aspir-81 Aspir-81 Yes Na [place] 1 tablet Common [facility] Nasacort Nasacort Yes Na [place] 1 puff in Common Allergy Allergy each Spirit 24HR 24HR nostril [facility] Viagra Viagra Yes Na [place] 1 tablet Comm on as needed [facility] Yes Na [place] 1 tablet Co mmon [facility] Lipitor Lipitor Yes Na [place] 1 tablet Co mmon [facility] Ferrous Ferrous Yes Na [place] 1 tablet Co mmon Sulfate Sulfate [facility] Yes Na Hamilton 1 tablet Co mmon [facility] HydrALAZINE HydrALAZINE Yes Na [place] 1 tablet Common HCl HCl with food [facility] Hydrochloro Hydrochloro Yes Na Hamilton 1 tablet Common thiazide thiazide in the Spiri t morning [facility] Metoprolol Metoprolol Yes Na Hamilton 1 tablet Common Succinate Succinate Spiri t ER ER [facility] hydroCHLORO hydroCHLORO No 1{table QD [...] 10 t} Besylate MG MG 10 MG amLODIPine amLODIPine No 1{table QD amLODIPine Besylate 10 Besylate 10 t} Besylate MG MG 10 MG Triamcinolo Triamcinolo No 1{appli BID Triamcinol ne ne cation_ one Acetonide Acetonide to_affe Acetonide 0.1 % 0.1 % cted_ar 0.1 % ea} Ferrous Ferrous No 1{table QD Ferrous Sulfate 325 Sulfate 325 t} Sulfate (65 Fe) MG (65 Fe) MG 325 (65 Fe) MG Aspir-81 81 Aspir-81 81 No 1{table QD Aspir-81 MG MG t} 81 MG Jardiance Jardiance No 1{table QD Jardiance 10 MG 10 MG t} 10 MG hydroCHLORO hydroCHLORO No 1{table QD hydroCHLOR thiazide 25 thiazide 25 t_in_th Othiazide MG MG e_morni 25 MG ng} Potassium Potassium No 1{capsu QD Potassium Chloride 20 Chloride 20 le} Chloride MEQ MEQ 20 MEQ Clobetasol Clobetasol No 1{appli BID Clobetasol Propionate Propionate cation} Propionate 0.05 % 0.05 % 0.05 % Viagra 100 Viagra 100 No 1{table QD Viagra 100 MG MG t_as_ne MG eded} Nasacort Nasacort No 1{puff_ QD Nasacort Allergy Allergy in_each Allergy 24HR 55 24HR 55 _nostri 24HR 55 MCG/ACT MCG/ACT l} MCG/ACT Gabapentin Gabapentin No 1{capsu Gabapentin 600 MG 600 MG le} 600 MG Allopurinol Allopurinol No Allopurino 100 MG 100 MG l 100 MG Metoprolol Metoprolol No Metoprolol Succinate Succinate Succinate ER 25 MG ER 25 MG ER 25 MG tiZANidine tiZANidine No tiZANidine HCl 2 MG HCl 2 MG HCl 2 MG Gabapentin Gabapentin No Gabapentin 600 MG 600 MG 600 MG Atorvastati Atorvastati No Atorvastat n Calcium n Calcium in Calcium 40 MG 40 MG 40 MG hydrALAZINE hydrALAZINE No 1{table TID hydrALAZIN HCl 25 MG HCl 25 MG t_with_ E HCl 25 food} MG Norvasc 10 Norvasc 10 No 1{table QD Norvasc 10 MG MG t} MG Norvasc 10 Norvasc 10 No 1{table QD Norvasc 10 MG MG t} MG amLODIPine amLODIPine No 1{table QD amLODIPine Besylate 10 Besylate 10 t} Besylate MG MG 10 MG Triamcinolo Triamcinolo No 1{appli BID Triamcinol ne ne cation_ one Acetonide Acetonide to_affe Acetonide 0.1 % 0.1 % cted_ar 0.1 % ea} Ferrous Ferrous No 1{table QD Ferrous Sulfate 325 Sulfate 325 t} Sulfate (65 Fe) MG (65 Fe) MG 325 (65 Fe) MG Aspir-81 81 Aspir-81 81 No 1{table QD Aspir-81 MG MG t} 81 MG Jardiance Jardiance No 1{table QD Jardiance 10 MG 10 MG t} 10 MG hydroCHLORO hydroCHLORO No 1{table QD hydroCHLOR thiazide 25 thiazide 25 t_in_th Othiazide MG MG e_morni 25 MG ng} Potassium Potassium No 1{capsu QD Potassium Chloride 20 Chloride 20 le} Chloride MEQ MEQ 20 MEQ Clobetasol Clobetasol No 1{appli BID Clobetasol Propionate Propionate cation} Propionate 0.05 % 0.05 % 0.05 % Viagra 100 Viagra 100 No 1{table QD Viagra 100 MG MG t_as_ne MG eded} Nasacort Nasacort No 1{puff_ QD Nasacort Allergy Allergy in_each Allergy 24HR 55 24HR 55 _nostri 24HR 55 MCG/ACT MCG/ACT l} MCG/ACT Gabapentin Gabapentin No 1{capsu Gabapentin 600 MG 600 MG le} 600 MG Allopurinol Allopurinol No Allopurino 100 MG 100 MG l 100 MG Metoprolol Metoprolol No Metoprolol Succinate Succinate Succinate ER 25 MG ER 25 MG ER 25 MG tiZANidine tiZANidine No tiZANidine HCl 2 MG HCl 2 MG HCl 2 MG Gabapentin Gabapentin No Gabapentin 600 MG 600 MG 600 MG Atorvastati Atorvastati No Atorvastat n Calcium n Calcium in Calcium 40 MG 40 MG 40 MG hydrALAZINE hydrALAZINE No 1{table TID hydrALAZIN HCl 25 MG HCl 25 MG t_with_ E HCl 25 food} MG Norvasc 10 Norvasc 10 No 1{table QD Norvasc 10 MG MG t} MG Norvasc 10 Norvasc 10 No 1{table QD Norvasc 10 MG MG t} MG amLODIPine amLODIPine No 1{table QD amLODIPine Besylate 10 Besylate 10 t} Besylate MG MG 10 MG Triamcinolo Triamcinolo No 1{appli BID Triamcinol ne ne cation_ one Acetonide Acetonide to_affe Acetonide 0.1 % 0.1 % cted_ar 0.1 % ea} Ferrous Ferrous No 1{table QD Ferrous Sulfate 325 Sulfate 325 t} Sulfate (65 Fe) MG (65 Fe) MG 325 (65 Fe) MG Aspir-81 81 Aspir-81 81 No 1{table QD Aspir-81 MG MG t} 81 MG Jardiance Jardiance No 1{table QD Jardiance 10 MG 10 MG t} 10 MG hydroCHLORO hydroCHLORO No 1{table QD hydroCHLOR thiazide 25 thiazide 25 t_in_th Othiazide MG MG e_morni 25 MG ng} Potassium Potassium No 1{capsu QD Potassium Chloride 20 Chloride 20 le} Chloride MEQ MEQ 20 MEQ Clobetasol Clobetasol No 1{appli BID Clobetasol Propionate Propionate cation} Propionate 0.05 % 0.05 % 0.05 % Viagra 100 Viagra 100 No 1{table QD Viagra 100 MG MG t_as_ne MG eded} Nasacort Nasacort No 1{puff_ QD Nasacort Allergy Allergy in_each Allergy 24HR 55 24HR 55 _nostri 24HR 55 MCG/ACT MCG/ACT l} MCG/ACT Gabapentin Gabapentin No 1{capsu Gabapentin 600 MG 600 MG le} 600 MG Allopurinol Allopurinol No Allopurino 100 MG 100 MG l 100 MG Metoprolol Metoprolol No Metoprolol Succinate Succinate Succinate ER 25 MG ER 25 MG ER 25 MG tiZANidine tiZANidine No tiZANidine HCl 2 MG HCl 2 MG HCl 2 MG Gabapentin Gabapentin No Gabapentin 600 MG 600 MG 600 MG Atorvastati Atorvastati No Atorvastat n Calcium n Calcium in Calcium 40 MG 40 MG 40 MG hydrALAZINE hydrALAZINE No 1{table TID hydrALAZIN HCl 25 MG HCl 25 MG t_with_ E HCl 25 food} MG Norvasc 10 Norvasc 10 No 1{table QD Norvasc 10 MG MG t} MG Norvasc 10 Norvasc 10 No 1{table QD Norvasc 10 MG MG t} MG Jardiance Jardiance No 1{table QD Jardiance 10 MG 10 MG t} 10 MG Metoprolol Metoprolol No Metoprolol Succinate Succinate Succinate ER 25 MG ER 25 MG ER 25 MG Lipitor 40 Lipitor 40 No 1{table QD Lipitor 40 MG MG t} MG hydroCHLORO hydroCHLORO No 1{table QD hydroCHLOR thiazide 25 thiazide 25 t_in_th Othiazide MG MG e_morni 25 MG ng} Atorvastati Atorvastati No Atorvastat n Calcium n Calcium in Calcium 40 MG 40 MG 40 MG Clobetasol Clobetasol No 1{appli BID Clobetasol Propionate Propionate cation} Propionate 0.05 % 0.05 % 0.05 % Gabapentin Gabapentin No 1{capsu Gabapentin 600 MG 600 MG le} 600 MG Allopurinol Allopurinol No Allopurino 100 MG 100 MG l 100 MG Norvasc 10 Norvasc 10 No 1{table [...] 600 MG le} 600 MG Immunizations Ordered Filled Immunization Date Status Comments Sourc e Immunization Name Name Prevnar 13 Prevnar 13 2018-10-31 Completed [facility] -[facility] Vaccine -Pneumonia Vaccine 09:43:00 - [facility] Prevnar 13 Prevnar 13 2018-10-31 Completed [facility] -Pneumonia Vaccine -Pneumonia Vaccine 09:43:00 - [facility] Prevnar 13 Prevnar 13 2018-10-31 Completed [facility] -Pneumonia Vaccine -Pneumonia Vaccine 09:43:00 - [facility] Prevnar 13 Prevnar 13 2018-10-31 Completed [facility] -Pneumonia Vaccine -Pneumonia Vaccine 09:43:00 - [facility] Prevnar 13 Prevnar 13 2018-10-31 Completed [facility] -Pneumonia Vaccine -Pneumonia Vaccine 09:43:00 - [facility] Prevnar 13 Prevnar 13 2018-10-31 Completed [facility] -Pneumonia Vaccine -Pneumonia Vaccine 09:43:00 - [facility] Prevnar 13 Prevnar 13 2018-10-31 Completed [facility] -Pneumonia Vaccine -Pneumonia Vaccine 09:43:00 - [facility] Prevnar 13 Prevnar 13 2018-10-31 Completed [facility] -Pneumonia Vaccine -Pneumonia Vaccine 09:43:00 - [facility] Prevnar 13 Prevnar 13 2018-10-31 Completed [facility] -Pneumonia Vaccine -Pneumonia Vaccine 09:43:00 - [facility] Prevnar 13 Prevnar 13 2018-10-31 Completed [facility] -Pneumonia Vaccine -Pneumonia Vaccine 00:00:00 - [facility] Prevnar 13 Prevnar 13 Unknown Completed [facility] -Pneumonia Vaccine -Pneumonia Vaccine - [facility] Prevnar 13 Prevnar 13 Unknown Completed [facility] -Pneumonia Vaccine -Pneumonia Vaccine - [facility] Prevnar 13 Prevnar 13 Unknown Completed [facility] -Pneumonia Vaccine -Pneumonia Vaccine - [facility] Prevnar 13 Prevnar 13 Unknown Completed [facility] -Pneumonia Vaccine -Pneumonia Vaccine - [facility] Vital Signs Vital Name Observation Time Observation Value Comments Source height 2022-10-04 15:00:00 72.00 [in_i] Common S [facility] weight 2022-10-04 15:00:00 215 [lb_av] Common S [facility] temperature 2022-10-04 15:00:00 97.4 [degF] Common S pirit [facility] bmi 2022-10-04 15:00:00 29.16 kg/m2 Common S [facility] oximetry 2022-10-04 15:00:00 96 % [facility] S [facility] respiratory rate 2022-10-04 15:00:00 16 /min Comm on [facility] blood pressure 2022-10-04 15:00:00 132 mm[Hg] Common [facility] - systolic [facility] blood pressure 2022-10-04 15:00:00 66 mm[Hg] Common [facility] - diastolic [facility] height 2022-10-04 16:00:00 72.00 [in_i] Common S [facility] weight 2022-10-04 16:00:00 215 [lb_av] [facility] temperature 2022-10-04 16:00:00 97.4 [degF] [facility] bmi 2022-10-04 16:00:00 29.16 kg/m2 [facility] S [facility] oximetry 2022-10-04 16:00:00 96 % Common [facility] respiratory rate 2022-10-04 16:00:00 16 /min Comm on [facility] blood pressure 2022-10-04 16:00:00 132 mm[Hg] Common [facility] - systolic [facility] blood pressure 2022-10-04 16:00:00 66 mm[Hg] [facility] - diastolic [facility] height 2022-08-24 13:20:00 72.00 [in_i] Common S [facility] weight 2022-08-24 13:20:00 218 [lb_av] Common S [facility] temperature 2022-08-24 13:20:00 98.4 [degF] [facility] bmi 2022-08-24 13:20:00 29.56 kg/m2 Common S pirit [facility] oximetry 2022-08-24 13:20:00 97 % [facility] respiratory rate 2022-08-24 13:20:00 17 /min Comm on [facility] blood pressure 2022-08-24 13:20:00 134 mm[Hg] Common [facility] - systolic [facility] blood pressure 2022-08-24 13:20:00 66 mm[Hg] Common [facility] - diastolic [facility] height 2022-04-20 10:00:00 72.00 [in_i] Common [facility] weight 2022-04-20 10:00:00 208.0 [lb_av] [facility] temperature 2022-04-20 10:00:00 97.4 [degF] [facility] bmi 2022-04-20 10:00:00 28.21 kg/m2 [facility] oximetry 2022-04-20 10:00:00 100 % [facility] respiratory rate 2022-04-20 10:00:00 16 /min Comm on [facility] blood pressure 2022-04-20 10:00:00 136 mm[Hg] [facility] systolic [facility] blood pressure 2022-04-20 10:00:00 68 mm[Hg] Common [facility] diastolic [facility] height 2022-01-14 14:20:00 72.00 [in_i] Common [facility] weight 2022-01-14 14:20:00 214.2 [lb_av] [facility] temperature 2022-01-14 14:20:00 98.0 [degF] Common [facility] bmi 2022-01-14 14:20:00 29.05 kg/m2 [facility] oximetry 2022-01-14 14:20:00 98 % [facility] respiratory rate 2022-01-14 14:20:00 16 /min Comm on [facility] blood pressure 2022-01-14 14:20:00 138 mm[Hg] [facility] - systolic [facility] blood pressure 2022-01-14 14:20:00 70 mm[Hg] Common [facility] - diastolic [facility] height 2021-04-21 14:40:00 72.00 [in_i] Common [facility] weight 2021-04-21 14:40:00 212.4 [lb_av] Common [facility] temperature 2021-04-21 14:40:00 97.9 [degF] Common [facility] bmi 2021-04-21 14:40:00 28.8 kg/m2 [facility] oximetry 2021-04-21 14:40:00 98 % [facility] respiratory rate 2021-04-21 14:40:00 18 /min Comm on [facility] blood pressure 2021-04-21 14:40:00 139 mm[Hg] Common [facility] - systolic [facility] blood pressure 2021-04-21 14:40:00 50 mm[Hg] Common [facility] - diastolic [facility] Procedures This patient has no known procedures. Encounters Start End Encounter Admission Attending Care Care Encounter Source Date/Time Date/Time Type Type Clinicians Facility Department ID 2023-02-22 Outpatient [facility]a, [facility] [id number] Common 10:46:00 Keeley [id number] [facility] 2023-01-28 Outpatient [place], [facility] [id number] Common 09:21:00 Keeley [id number] [facility] 2023-01-19 Outpatient [place], [facility] [id number] Common 14:02:00 Keeley [id number] [facility] 2023-01-14 Outpatient [place], [facility] [id number] Common 10:16:00 Keeley [id number] [facility] 2022-08-23 Outpatient [place], [facility] [id number] Common 14:12:00 Keeley [id number] [facility] 2022-07-08 Outpatient Hillary, STLMLC [facility] [id number] Common 14:06:01 Sindy [id number] [facility] 2022-04-19 Outpatient [place], Na STLMLC [facility] [id number] 2 Common 08:11:00 [id number] [facility] 2022-02-03 Outpatient [place], Na [facility]LMLC [facility] [id number] 2 Common 14:42:00 [facility] 2022-01-14 Outpatient [place], Na [facility]LMLC [facility] [id number] 2 Common 14:24:01 [facility] 2022-01-12 Outpatient [place], Na STLMLC [facility] [id number] 2 Common 14:50:00 [facility] 2021-10-27 Outpatient [place], Na [facility]LMLC [facility] [id number] 2 Common 15:49:00 [facility] 2021-07-01 Outpatient [place], Na STLMLC [facility] [id number] 2 Common 14:14:03 [id number] [facility] 2021-07-01 Outpatient [place], Na STLMLC [facility] [id number] 2 Common 13:51:23 [id number] [facility] 2021-07-01 Outpatient [place], Na STLMLC [facility] [id number] 2 Common 12:23:58 [id number] [facility] 2021-07-01 Outpatient [place], Na STLMLC [facility] [id number] 2 Common 12:21:34 [id number] [facility] 2021-07-01 Outpatient [place], Na [facility] [id number] 2 Common 12:15:00 [facility] 2021-07-01 Outpatient [place], Na [facility]LMLC [facility] [id number] 2 Common 12:13:57 [id number] [facility] 2021-07-01 Outpatient [place], Na [facility]LML[facility] [id number] 2 Common 11:20:46 [id number] [facility] 2021-07-01 Outpatient [place], Na [facility]ML[facility] [id number] 2 Common 11:19:48 [id number] [facility] 2021-07-01 Outpatient [place], Na [facility] [id number] 2 Common 11:16:50 [id number] [facility] 2021-07-01 Outpatient [place], Na [facility]LMLC [facility] [id number] 2 Common 11:16:33 [id number] [facility] 2021-07-01 Outpatient [place], Na STLMLC [facility] [id number] 2 Common 11:00:27 [id number] [facility] 2022-10-14 2022-10-14 (TEL) STLMLC [facility] [id number] Co mmon 00:00:00 00:00:00 [facility] 2022-10-04 2022-10-04 OFFICE STLMLC ST[facility] [id number] Co mmon 00:00:00 00:00:00 VISIT [facility] ESTAB PT - CHI LEVEL 4 [facility] 2022-10-04 2022-10-04 SUB ANNUAL STLMLC STL[facility]C [id number] Common 00:00:00 00:00:00 MCR Spirit WELLNESS - CHI VISIT [facility] 2022-08-24 2022-08-24 OFFICE STLMLC ST[facility] [id number] Co mmon 00:00:00 00:00:00 VISIT Spirit ESTAB PT - CHI LEVEL 4 [facility] 2022-07-13 2022-07-13 (TEL) STLMLC ST[facility] [id number] Co mmon 00:00:00 00:00:00 [facility] 2022-07-08 2022-07-08 (TEL) STLMLC ST[facility] [id number] Co mmon 00:00:00 00:00:00 [facility] 2022-04-20 2022-04-20 OFFICE STLMLC [facility] [id number] Co mmon 00:00:00 00:00:00 VISIT Spirit ESTAB PT - CHI LEVEL 4 [facility] 2022-02-17 2022-02-17 (TEL) STLMLC ST[facility] [id number] Co mmon 00:00:00 00:00:00 [facility] 2022-01-14 2022-01-14 OFFICE STLMLC ST[facility] [id number] Co mmon 00:00:00 00:00:00 VISIT [facility] ESTAB PT - CHI LEVEL 4 [facility] 2021-10-12 2021-10-12 (TEL) STLMLC ST[facility] [id number] Co mmon 00:00:00 00:00:00 [facility] 2021-04-21 2021-04-21 OFFICE STLMLC ST[facility] [id number] Co mmon 00:00:00 00:00:00 VISIT [facility] ESTAB PT - CHI LEVEL 4 [facility] 2021-04-17 2021-04-17 (TEL) STLMLC ST[facility] [id number] Co mmon 00:00:00 00:00:00 [facility] 2021-01-26 2021-01-26 Outpatient [facility] [id number] Common 00:00:00 00:00:00 [facility] 2020-12-30 2020-12-30 Outpatient [facility] [id number] Common 00:00:00 00:00:00 [facility] 2020-12-30 2020-12-30 Outpatient [facility] [id number] Common 00:00:00 00:00:00 [facility] 2020-05-28 2020-05-28 Outpatient [facility] [id number] Common 00:00:00 00:00:00 [facility] 2019-09-05 2019-09-05 [facility] [id number] Common 08:40:00 08:40:[address] [facility] [facility] [address] [facility] 2019-08-27 2019-08-27 [facility] [id number] Common 08:56:00 08:56:00 t [employer] [facility] [address] [facility] 2019-03-01 2019-03-01 [facility] [id number] Common 10:00:00 10:00:[address] Sp[address] [facility] 2019-01-31 2019-01-31 [facility] [id number] Common 10:00:00 10:00:[address] Sp[address] [facility] 2018-10-31 2018-10-31 [facility] [id number] Common 09:00:00 09:00:[address] Sp[address] [facility] 2018-07-31 2018-07-31 [facility] [id number] Common 10:30:00 10:30:[address] Sp[address] [facility] 2017-12-15 2017-12-15 [facility] [id number] Common 08:30:00 08:30:[address] Sp[address] [facility] 2017-09-14 2017-09-14 [facility] [id number] Common 09:15:00 09:15:[address] Sp[address] [facility] Results Test Description Test Time Test Comments Results Result Comments Source CBC W/AUTO DIFF 2023-01-13 00:00:00 Test Item Value Reference Range Interpretation Comme nts NUCLEATED RBCS (test code 0.0 /100 WBC'S See_Comment [Automated message] The = 36733-3) system which ge nerated this result transmit marya reference range: 0.0 /100 WBC'S. The reference range was not used to interpret th is result as normal/abnormal . ABSOLUTE EOSINOPHILS (test 0.03 K/UL See_Comment [Automated message] The code = 39047-6) system which generated this result transmit marya reference range: 0.00-0.5 0 K/UL. The reference range was not used to interpret th is result as normal/abnormal . ABSOLUTE LYMPHOCYTES (test 3.30 K/UL See_Comment [Automated message] The code = 50411-9) system which generated this result transmit marya reference range: 1.00-4.0 0 K/UL. The reference range was not used to interpret th is result as normal/abnormal . ABSOLUTE MONOCYTES (test 1.18 K/UL See_Comment H [A utomated message] The code = 99792-7) system which generated this result transmit marya reference range: 0.20-1.0 0 K/UL. The reference range was not used to interpret th is result as normal/abnormal . ABSOLUTE NEUTROPHILS (test 6.60 K/UL See_Comment [Automated message] The code = 43544-8) system which generated this result transmit marya reference range: 1.50-7.5 0 K/UL. The reference range was not used to interpret th is result as normal/abnormal . BASOPHILS (test code = 0.3 % 01154-2) EOSINOPHILS (test code = 0.3 % 06300-8) HEMATOCRIT (test code = 36.8 % See_Comment L [Au tomated message] The 16374-9) system which [employer] nerated this result transmit marya reference range: 40.0-51. 0 %. The reference range was not used to interpret th is result as normal/abnormal . HEMOGLOBIN (test code = 11.6 G/DL See_Comment L [Au tomated message] The 718-7) system which [employer] nerated this result transmit marya reference range: 13.5-17. 0 G/DL. The reference range was not used to interpret th is result as normal/abnormal . LYMPHOCYTES (test code = 29.4 % 89260-9) MCH (test code = 85139-9) 22.7 PG See_Comment L [ Automated message] The system which [employer] nerated this result transmit marya reference range: 25.0-33. 0 PG. The reference range was not used to interpret th is result as normal/abnormal . MCHC (test code = 73146-6) 31.5 G/DL See_Comment [Automated message] The system which [employer] nerated this result transmit marya reference range: 31.0-36. 0 G/DL. The reference range was not used to interpret th is result as normal/abnormal . MCV (test code = 18300-3) 72.2 fL See_Comment L [ Automated message] The system which [employer] nerated this result transmit marya reference range: 80.0-99. 0 fL. The reference range was not used to interpret th is result as normal/abnormal . MONOCYTES (test code = 10.5 % 17615-6) NEUTROPHILS (test code = 58.9 % 42031-2) PLATELET COUNT (test code 254 K/UL See_Comment [ Automated message] The = 46211-9) system which [employer] nerated this result transmit marya reference range: 130-400 K/UL. The reference range was not used to interpret th is result as normal/abnormal . RBC (test code = 06763-5) 5.10 M/UL See_Comment [ Automated message] The system which [employer] nerated this result transmit marya reference range: 4.50-6.1 0 M/UL. The reference range was not used to interpret th is result as normal/abnormal . RDW (test code = 03954-5) 15.8 % See_Comment H [ Automated message] The system which [employer] nerated this result transmit marya reference range: 11.5-15. 0 %. The reference range was not used to interpret th is result as normal/abnormal . WBC (test code = 09613-8) 11.2 K/UL See_Comment H [ Automated message] The system which [employer] nerated this result transmit marya reference range: 3.5-11.0 K/UL. The reference range was not used to interpret th is result as normal/abnormal . HEMOGLOBIN [id number] 00:00:00 Test Item Value Reference Range Interpretation Comments HEMOGLOBIN A1c (test 6.8 % See_Comment H [Autom ated message] The code = 4548-4) system which generated this result tra nsmitted reference range : 4.2-5.6 %. The referenc e range was not used to interpret this result as normal/abnormal . LIPID PANEL WITH REFLEX DIRECT [id number] 00:00:00 Test Item Value Reference Range Interpretation Comments CALC LDL CHOL (test 98 MG/DL See_Comment [Automa marya message] code = 07909-9) The system [facility] generated this result transmit marya reference range : <100 MG/DL. The reference range was not used to interpret this result as normal/abnormal . CHOLESTEROL (test code 160 MG/DL See_Comment [Aut omated message] = 2093-3) The system [facility] [employer] generated this result transmit marya reference range : <200 MG/DL. The reference range was not used to interpret this result as normal/abnormal . HDL CHOLESTEROL (test 36 MG/DL See_Comment L [Auto mated message] code = 2085-9) The system [facility] generated this result transmit marya reference range : >39 MG/DL. The refe rence range was not u sed to interpret th is result as normal/abnormal . RISK RATIO LDL/HDL 2.72 RATIO See_Comment [Automat ed message] (test code = 70612-1) The sy stem which generated this result transmit marya reference range : <3.55 RATIO. Th e reference range was not used to interpret this result as normal/abnormal . TRIGLYCERIDES (test 166 MG/DL See_Comment H [Automa marya message] code = 2571-8) The system [facility] generated this result transmit marya reference range : <150 MG/DL. The reference range was not used to interpret this result as normal/abnormal . ALBUMIN/CREATININE RATIO, RANDOM [id number] 00:00:00 Test Item Value Reference Range Interpretation Comments ALBUMIN, URINE, 1.1 MG/DL NOT ESTAB MG/DL RANDOM (test code = 09708-7) CALC ALBUMIN/CREAT, 3 MG/G See_Comment [Automa marya message] RND (test code = The system which 54167-9) generated this result transmitted ref erence range: <30 MG/G . The reference range was not used to interpr et this result as normal/abnormal . CREATININE, URINE, 365.6 MG/DL NOT ESTAB MG/DL CONC. (test code = 2161-8) COMPREHENSIVE METABOLIC [id number] 00:00:00 Test Item Value Reference Range Interpretation Comments ALBUMIN (test code = 4.2 G/DL See_Comment [Autom ated message] 1751-7) The system [facility] generated this result transmit marya reference range : 3.5-5.2 G/DL. T he reference range was not used to interpret this result as normal/abnormal . ALKALINE PHOSPHATASE 90 U/L See_Comment [Autom ated message] (test code = 6768-6) The sys tem which generated this result transmit marya reference range : 40-125 U/L. The reference range was not used to interpret this result as normal/abnormal . BILIRUBIN, TOTAL 0.4 MG/DL See_Comment [Automated message] (test code = 1975-2) The sys tem which generated this result transmit marya reference range : <=1.2 MG/DL. Th e reference range was not used to interpret this result as normal/abnormal . BUN (test code = 28 MG/DL See_Comment H [Automated message] 3094-0) The system [facility] generated this result transmit marya reference range : 8-23 MG/DL. The reference range was not used to interpret this result as normal/abnormal . CALCIUM (test code = 9.5 MG/DL See_Comment [Autom ated message] 39198-2) The system [facility] generated this result transmit marya reference range : 8.5-10.5 MG/DL. The reference range was not used to interpret this result as normal/abnormal . CALC A/G RATIO (test 1.4 RATIO See_Comment [Autom ated message] code = 1759-0) The system [facility] generated this result transmit marya reference range : 1.0-2.6 RATIO. The reference range was not used to interpret this result as normal/abnormal . CALC BUN/CREAT (test 15 RATIO See_Comment [Autom ated message] code = 3097-3) The system [facility] generated this result transmit marya reference range : 6-28 RATIO. The reference range was not used to interpret this result as normal/abnormal . CALC GLOBULIN (test 3.0 G/DL See_Comment [Automa marya message] code = 88668-4) The system [facility] generated this result transmit marya reference range : 1.9-3.7 G/DL. T he reference range was not used to interpret this result as normal/abnormal . CARBON DIOXIDE (test 26 MEQ/L See_Comment [Autom ated message] code = 1963-8) The system [facility] generated this result transmit marya reference range : 19-31 MEQ/L. Th e reference range was not used to interpret this result as normal/abnormal . CHLORIDE (test code 102 MEQ/L See_Comment [Automa marya message] = 4775-0) The system [facility] generated this result transmit marya reference range : 95-107 MEQ/L. T he reference range was not used to interpret this result as normal/abnormal . CREATININE (test 1.83 MG/DL See_Comment H [Automated message] code = 2160-0) The system [facility] generated this result transmit marya reference range : 0.80-1.40 MG/DL . The reference range was not used to interpret this result as normal/abnormal . eGFR (2020 CKD-EPI) 37 ML/MIN/1.73 See_Comment L [Auto mated message] (test code = The system [employer] 92542-4) generated this result transmit marya reference range : >60 ML/MIN/1.73. Th e reference range was not used to interpret this result as normal/abnormal . GLUCOSE (test code = 137 MG/DL See_Comment H [Autom ated message] 1558-6) The system [employer] generated this result transmit marya reference range : 70-99 MG/DL. Th e reference range was not used to interpret this result as normal/abnormal . POTASSIUM (test code 3.7 MEQ/L See_Comment [Autom ated message] = 2823-3) The system [employer] generated this result transmit marya reference range : 3.5-5.4 MEQ/L. The reference range was not used to interpret this result as normal/abnormal . PROTEIN, TOTAL (test 7.2 G/DL See_Comment [Autom ated message] code = 2885-2) The system [facility] generated this result transmit marya reference range : 6.1-8.3 G/DL. T he reference range was not used to interpret this result as normal/abnormal . AST (test code = 21 U/L See_Comment [Automated message] 1920-8) The system [employer] generated this result transmit marya reference range : 9-50 U/L. The reference range was not used to interpret this result as normal/abnormal . ALT (test code = 22 U/L See_Comment [Automated message] 1742-6) The system [facility] [employer] generated this result transmit marya reference range : 5-50 U/L. The reference range was not used to interpret this result as normal/abnormal . SODIUM (test code = 141 MEQ/L See_Comment [Automa maray message] 2951-2) The system [facility] [employer] generated this result transmit marya reference range : 133-146 MEQ/L. The reference range was not used to interpret this result as normal/abnormal .
[2023-04-24 13:07] LABS: Absolute Lymphocytes (CBC) 3.5 K/uL (0.7-4.9); Hematocrit 40.7 % (39.6-49.0); Lymphocytes % 36.7 % (15.3-44.8); MCV 71.1 fL (80-100); MPV 8.5 fL (7.6-11.3); Platelets 229 thou/uL (152-406); RBC Red Blood Cell Count 5.73 M/uL (4.33-5.43)
[2023-04-24 13:12] LABS: Protime INR 1.12
[2023-04-24 13:27] LABS: Albumin 3.5 g/dL (3.4-5.0); Bilirubin Direct 0.2 mg/dL (0-0.2); Bilirubin Indirect, Calculated 0.7 mg/dL (0.2-0.8); Bilirubin Total 0.9 mg/dL (0.2-1.0); Magnesium 2.4 mg/dL (1.6-2.4); Protein, Total 7.9 g/dL (6.4-8.2); Troponin High Sensitivity 20.9 pg/mL (<58.9)
--- NOTE | 2023-04-24 13:52 | RAD REPORT ---
EXAM DESCRIPTION: US - Abdomen Exam Limited - 04/24/2023 1:43 pm CLINICAL HISTORY: ABD PAIN COMPARISON: <Comparisons> FINDINGS: The gallbladder demonstrates shadowing gallstone in the gallbladder neck region. No perich olecystic fluid or gallbladder wall thickening. The common bile duct is normal measuring 6 mm. The liver demonstrates no findings of intrahepatic biliary dilatation. IMPRESSION: Gallstones are present in the gallbladder neck.
--- NOTE | 2023-04-24 14:00 | RAD REPORT ---
EXAM DESCRIPTION: RAD - Chest Single View - 04/24/2023 1:52 pm CLINICAL HISTORY: ABDOMINAL DISTENTION Chest pain. COMPARISON: <Comparisons> FINDINGS: Portable technique limits examination quality. The lungs are emphysematous but grossly clear. The heart is normal in size. No displaced fractures.Ao rtic arthrosclerosis. IMPRESSION: No acute intrathoracic process suspected. Mild COPD.
--- NOTE | 2023-04-24 14:20 | RAD REPORT ---
EXAM DESCRIPTION: CT - Abdomen Pelvis Wo Contrast - 04/24/2023 2:10 pm CLINICAL HISTORY: Abdominal pain. ABD PAIN COMPARISON: <Comparisons> TECHNIQUE: CT imaging of the abdomen and pelvis was performed without contrast. Solid organ, bowel a nd vascular assessment is limited due to lack of IV and oral contrast. All CT scans are performed using dose optimization technique as appropriate and may include automated exposure control or mA/KV adjustment according to patient size. FINDINGS: The lower lung stevens are clear.Cholelithiasis. The liver, spleen, pancreas, adrenal glands and kidneys are within normal limits for a limited non-co ntrast examination.Aortoiliac atherosclerosis. No bowel obstruction, free air, free fluid or abscess. Mild sigmoid diverticulosis coli without diver ticulitis. The appendix is normal. Bilateral fat containing inguinal hernias, larger on the left. Moderate multilevel degenerative spondylosis. IMPRESSION: Cholelithiasis. Sigmoid diverticulosis coli without diverticulitis. A limited non-contrast examination was performed as detailed.
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
[2023-04-24] MEDS ORDERED: POTASSIUM 25 MEQ EFFERV TAB ONE ×2 (15:22→15:28)
[2023-04-24 15:54] VITALS: TEMP 97.6
[2023-04-24 15:56] VITALS: O2SAT 100
[2023-04-24 15:58] VITALS: BP 138/68
--- NOTE | 2023-04-27 17:00 | EKG ---
Test Date: 2023-04-24 Test Time: 15:05:25 Wharf Builder: [place] MEASUREMENT RESULTS: Intervals: Rate: 42 CA: 280 QRSD: 98 QT: 462 QTc: 385 [place]: P: 78 CA: 280 QRS: 5 T: 195 INTERPRETIVE STATEMENTS: Marked sinus bradycardia with 1st degree AV block ST & T wave abnormality, consider lateral ischemia Abnormal ECG Compared to ECG 05/31/2019 09:36:16 ST (T wave) deviation now present T-wave abnormality no longer present Possible ischemia still present Electronically Signed On 04-27-23 16:53:42 LABORATORY MECH[employer]IC HELPER by Josue Warner
== END 2023-04-24 15:44 | disposition home or self-care (01) ==
LOC: ER 11:02
DX: R10.816 Epigastric abdominal tenderness (principal); K80.80 Other cholelithiasis without obstruction; K81.0 Acute cholecystitis; K57.30 Diverticulosis of large intestine without perforation or abscess without bleeding; I10 Essential (primary) hypertension; R00.1 Bradycardia, unspecified; Z88.5 Allergy status to narcotic agent; Z88.0 Allergy status to penicillin; E78.00 Pure hypercholesterolemia, unspecified
CPT/HCPCS: 36415; 71045; 74176; 76705; 80048; 80076; 83690; 83735; 83880; 84484; 85025; 85610; 93005; 99284